=== PATIENT | female | born 1955 | race Caucasian/White ===

== ENCOUNTER 2016-11-18 12:15 | Inpatient (IN) | payer OTHER ==
[2016-11-18 12:31] VITALS: BMI 35.8
--- NOTE | 2016-11-18 15:15 | HP ---
CIWA Score - CIWA Score Nausea/Vomitin (& DIARRHEA) Muscle Tremors: 4-Moderate,w/Arms Extend Anxiety: 4-Mod. Anxious/Guarded Agitation: 4-Moderately Restless Paroxysmal Sweats: 3 Orientation: 0-Oriented Tacttile Disturbances: 1-Very Mild Itch/Numbness Auditory Disturbances: 0-None Visual Disturbances: 0-None Headache: 0-None Present CIWA-Ar Total Score: 19 Admission ROS BHS - HPI Chief Complaint: WITHDRAWAL SX. Allergies/Adverse Reactions: Allergies Allergy/AdvReac Type Severity Reaction Status Date / Time No Known Drug Allergies Allergy Unknown Verified 11/18/16 14:12 peaches Allergy Rash Uncoded 11/18/16 14:12 History of Present Illness: 61 Y/O WOMAN WITH A LONG HX. OF ALCOHOLISM IS ADMITTED FOR DETOX. PT. HAS BEEN IN PREVIOUS DETOX, PT. REPORT 4 YRS DRUG FREE & SOBER. Exam Limitations: No Limitations - Ebola screening Have you traveled outside of the country in the last 21 days: No Have you had contact with anyone from an Ebola affected area: No Have you been sick,other than usual withdrawal symptoms: No Do you have a fever: No - Review of Systems Constitutional: Diaphoresis EENT: reports: No Symptoms Reported Respiratory: reports: Cough (ASTHMA), Shortness of Breath (ASTHMA), Wheezing ( ASTHMA) GI: reports: Diarrhea, Nausea : reports: Frequency Musculoskeletal: reports: Back Pain, Joint Pain Integumentary: reports: Sweating Neuro: reports: Tremors Endocrine: reports: No Symptoms Reported Hematology: reports: No Symptoms Reported Psychiatric: reports: No Sypmtoms Reported Other Systems: Reviewed and Negative Patient History - Patient Medical History Hx Anemia: No Hx Asthma: Yes Hx Chronic Obstructive Pulmonary Disease (COPD): No Hx Cancer: No Hx Cardiac Disorders: No Hx Congestive Heart Failure: No Hx Hypertension: Yes Hx Hypercholesterolemia: Yes Hx Pacemaker: No HX Cerebrovascular Accident: No Hx Seizures: No Hx Dementia: No Hx Diabetes: Yes (BGM-145) Hx Gastrointestinal Disorders: No Hx Liver Disease: No Hx Genitourinary Disorders: No Hx Sexually Transmitted Disorders: No Hx Renal Disease (ESRD): No Hx Thyroid Disease: No Hx Human Immunodeficiency Virus (HIV): No Hx Hepatitis C: No Hx Depression: Yes Hx Suicide Attempt: No Hx Bipolar Disorder: Yes (depression, gives hx of mood changes) Hx Schizophrenia: No - Patient Surgical History Past Surgical History: Yes Hx Neurologic Surgery: No Hx Cataract Extraction: No Hx Cardiac Surgery: No Hx Lung Surgery: No Hx Breast Surgery: No Hx Breast Biopsy: No Hx Abdominal Surgery: No Hx Appendectomy: No Hx Cholecystectomy: No Hx Genitourinary Surgery: No Hx Section: No Hx Orthopedic Surgery: No Hx Hysterectomy: Yes (2008) Anesthesia Reaction: No - PPD History Previous Implant?: Yes Documented Results: Positive w/o proof Implanted On Prior [facility] Admission?: No PPD to be Administered?: No - Reproductive History Patient is a Female of Child Bearing Age (11 -55 yrs old): No Last Menstrual Period: 10/18/09 Patient : No - Smoking Cessation Smoking history: Current some day smoker Have you smoked in the past 12 months: Yes Aproximately how many cigarettes per day: 5 If you are a former smoker, when did you quit?: 2 moths ago Cigars Per Day: 0 Hx Chewing Tobacco Use: No Initiated information on smoking cessation: Yes 'Breaking Loose' booklet given: 11/18/16 - Substance & Tx. History Hx Alcohol Use: Yes Hx Substance Use: Yes Substance Use Type: Alcohol, Cocaine, Marijuana Hx Substance Use Treatment: Yes (DETOX) - Substances Abused Alcohol Route: Oral Frequency: Daily Amount used: vodka(1/5)/beer(2-6pks(24oz) Age of first use: 15 Date of Last Use: 11/18/16 Marijuana/Hashish Route: Smoking Frequency: Daily Amount used: $10 Age of first use: 15 Date of Last Use: 12/18/15 Cocaine Route: Inhalation Frequency: 3-6 times per week Amount used: $10 Age of first use: 29 Date of Last Use: 12/18/15 Family Disease History - Family Disease History Family Disease History: Heart Disease: Sister (breast), CA: Mother (pelvic), Sister, Respiratory: Mother, Sister, Other: Brother ( heroin overdose) Admission Physical Exam S - Vital Signs Vital Signs: Vital Signs - 24 hr 11/18/16 12:29 Temperature 96.5 F L Pulse Rate 101 H Respiratory 20 Rate Blood Pressure 122/79 - Physical General Appearance: Yes: Alcohol on Breath, Tremorous, Irritable, Sweating, Anxious HEENTM: Yes: Within Normal Limits Respiratory: Yes: Chest Non-Tender, Lungs Clear, Normal Breath Sounds Neck: Yes: Supple Breast: Yes: Breast Exam Deferred Cardiology: Yes: Regular Rhythm, Regular Rate, S1, S2 Abdominal: Yes: Normal Bowel Sounds, Non Tender, Soft Genitourinary: Yes: Frequency Back: Yes: Within Normal Limits Musculoskeletal: Yes: Within Normal Limits Extremities: Yes: Tremors Neurological: Yes: Fully Oriented, Alert Integumentary: Yes: Diaphoresis Lymphatic: Yes: Within Normal Limits - Diagnostic (1) Asthma Current Visit: Yes Status: Active (2) DM Diabetes mellitus type 2 Current Visit: Yes Status: Active (3) Essential hypertension Current Visit: Yes Status: Active (4) Gastroesophageal reflux disease Current Visit: Yes Status: Active (5) Nicotine dependence Current Visit: No Status: Active (6) Alcohol dependence with uncomplicated withdrawal Current Visit: Yes Status: Acute (7) Cocaine dependence, uncomplicated Current Visit: Yes Status: Acute Cleared for Admission [facility] - Detox or Rehab [facility] Level of Care: Medically Managed Detox Regimen/Protocol: Librium S Breath Alcohol Content Breath Alcohol Content: 0.044 Urine Pregancy Test - Result Urine Test Results: Negative- NO Line Present Urine Drug Screen - Results Drug Screen Negative: No Urine Drug Screen Results: THC-Marijuana, JACKELINE-Cocaine
[2016-11-18] MEDS ORDERED: MAG HYDROX/AL HYDROX/SIMETH 30 ML UNIT-DOSE CUP PO PRN (15:28)
[2016-11-18] MEDS ORDERED: ACETAMINOPHEN 325 MG TABLET (FP) PO PRN (15:28)
[2016-11-18] MEDS ORDERED: MENTHOL/PHENOL 1 EACH UD MM PRN (15:28)
[2016-11-18] MEDS ORDERED: LOPERAMIDE HCL 2 MG CAPSULE PO PRN (15:28)
[2016-11-18] MEDS ORDERED: chlordiazePOXIDE HCL 25 MG CAPSULE PO ONE (15:28)
[2016-11-18] MEDS ORDERED: MAGNESIUM CITRATE 300 ML BOTTLE PO PRN (15:28)
[2016-11-18] MEDS ORDERED: guaiFENesin/D-METHORPHAN HB 10 ML UNIT-DOSE CUPS PO PRN (15:28)
[2016-11-18] MEDS ORDERED: P-EPHED 60MG/TRIPROLIDI 2.5MG TABLET PO PRN (15:28)
[2016-11-18] MEDS ORDERED: ALBUTEROL SO4 2.5/IPRATROPIUM 0.5 INH SOL 3 ML VIAL.NEB. NEB PRN (15:45)
[2016-11-18] MEDS: INSULIN SLIDING SCALE (NOVOLOG) 1 VIAL SQ SCH (16:58)
[2016-11-18] MEDS: chlordiazePOXIDE HCL 25 MG CAPSULE PO SCH ×2 (17:05→22:20)
[2016-11-18] MEDS: NICOTINE 14 MG/24 HOURS TOPICAL PATCH TD SCH (17:05)
[2016-11-18] MEDS: NICOTINE POLACRILEX 2 MG GUM BC PRN (17:06)
[2016-11-18] MEDS: IBUPROFEN 400 MG TABLET (FP) PO PRN (17:10)
[2016-11-18] MEDS: ALBUTEROL SO4 2.5/IPRATROPIUM 0.5 INH SOL 3 ML VIAL.NEB. NEB SCH ×2 (18:31→23:47)
[2016-11-18] MEDS ORDERED: PATIENT'S OWN MEDICATION (NON-FORMULARY) (Omega-3 Fatty Acids [Omega-3] 1,000 MG) PO SCH (22:00)
[2016-11-18] MEDS ORDERED: PRAMIPEXOLE DIHYDROCHLORIDE 0.5 MG TABLET PO SCH (22:00)
[2016-11-18] MEDS ORDERED: PRAMIPEXOLE DIHYDROCHLORIDE PO SCH (22:00)
[2016-11-18] MEDS: ATORVASTATIN CA 20 MG TABLET (FP) PO SCH (22:20)
[2016-11-18] MEDS: OMEGA-3 ACID ETHYL ESTERS (FATTY-ACIDS) 1 GM CAPSULE (FP) PO SCH (22:21)
[2016-11-18] MEDS: THIAMINE HCL 100 MG TABLET (FP) PO SCH (22:21)
[2016-11-18] MEDS: MONTELUKAST NA 10 MG TABLET PO SCH (22:21)
[2016-11-18] MEDS: diphenhydrAMINE HCL 50 MG CAPSULE PO PRN (22:33)
[2016-11-18 23:05] LABS: URINE APPEARANCE CLEAR; URINE BILIRUBIN NEGATIVE (NEGATIVE); URINE COLOR LTYELLOW; URINE GLUCOSE (UA) NEGATIVE (NEGATIVE); URINE KETONE NEGATIVE (NEGATIVE); URINE LEUK ESTERASE NEGATIVE (NEGATIVE); URINE NITRITE NEGATIVE (NEGATIVE); URINE PROTEIN NEGATIVE (NEGATIVE); URINE UROBILINOGEN NEGATIVE E.U./dl (0.2-1.0)
[2016-11-18 23:11] LABS: URINE BLOOD 1+ (NEGATIVE)
[2016-11-19] MEDS: chlordiazePOXIDE HCL 25 MG CAPSULE PO SCH ×4 (05:48→22:17)
[2016-11-19] MEDS: metFORMIN HCL 500 MG TABLET (FP) PO SCH (06:58)
[2016-11-19] MEDS: ALBUTEROL SO4 2.5/IPRATROPIUM 0.5 INH SOL 3 ML VIAL.NEB. NEB SCH ×4 (06:59→23:36)
[2016-11-19] MEDS: INSULIN SLIDING SCALE (NOVOLOG) 1 VIAL SQ SCH ×2 (06:59→17:25)
[2016-11-19] MEDS: IBUPROFEN 400 MG TABLET (FP) PO PRN ×2 (08:55→18:35)
[2016-11-19] MEDS ORDERED: PATIENT'S OWN MEDICATION (NON-FORMULARY) (Omeprazole 40 MG) PO SCH (10:00)
[2016-11-19 10:32] LABS: MCH 35.1 pg (25.7-33.7); MCHC 34.1 g/dl (32.0-36.0); MEAN CELL VOLUME 102.8 fl (80-96); MEAN PLT VOLUME 8.2 fl (7.5-11.1); PLATELET COUNT 173 K/MM3 (134-434); RDW 12.7 % (11.6-15.6); WHITE BLOOD COUNT 8.5 K/mm3 (4.0-10.0)
[2016-11-19] MEDS: OMEGA-3 ACID ETHYL ESTERS (FATTY-ACIDS) 1 GM CAPSULE (FP) PO SCH ×2 (10:40→22:16)
[2016-11-19] MEDS: HYDROCHLOROTHIAZIDE 12.5 MG CAPSULE (FP) PO SCH (10:42)
[2016-11-19] MEDS: PRENATAL VITAMINS W/ FOLIC ACID TABLET (FP) PO SCH (10:42)
[2016-11-19] MEDS: amLODIPine BESYLATE 10 MG TABLET (FP) PO SCH (10:42)
[2016-11-19] MEDS: ASPIRIN 81 MG CHEWABLE TABLETS PO SCH (10:42)
[2016-11-19] MEDS: PANTOPRAZOLE 40 MG TABLET (FP) PO SCH (10:43)
--- NOTE | 2016-11-19 10:57 | CONSULT ---
[facility] Psychiatric Consult - Data Date of interview: 11/19/16 Admission source: [facility] Identifying data: Readmission to [facility] for this 61 y/o AA female seeking detox treatment on for alcohol,cocaine and marijuana dependence.Patient is ,a mother of six,domiciled unemployed and supported on SSI benefits. Substance Abuse History: - Smoking Cessation. Smoking history: Current some day smoker. Have you smoked in the past 12 months: Yes. Aproximately how many cigarettes per day: 5. If you are a former smoker, when did you quit?: 2 moths ago. Cigars Per Day: 0. Hx Chewing Tobacco Use: No. Initiated information on smoking cessation: Yes. 'Breaking Loose' booklet given: 11/18/16. - Substance & Tx. History. Hx Alcohol Use: Yes. Hx Substance Use: Yes. Substance Use Type : Alcohol, Cocaine, Marijuana. Hx Substance Use Treatment: Yes (DETOX). - Substances Abused. Alcohol. Route: Oral. Frequency: Daily. Amount used: vodka(1/5)/beer(2-6pks(24oz). Age of first use: 15. Date of Last Use: . Marijuana/Hashish. Route: Smoking. Frequency: Daily. Amount used: $ 10. Age of first use: 15. Date of Last Use: 12/18/15. Cocaine. Route: Inhalation. Frequency: 3-6 times per week. Amount used: $10. Age of first use : 29. Date of Last Use: 12/18/15. Confirmed by patient. Medical History: Significant for hypertension,GERD,obesity diabetes mellitus and dyslipidemia. Psychiatric History: First contact with Psychiatry :seven years ago in the setting of an outpatient drug rehabilitatiion program.Issues addressed : depression,anxiety and sleep disorder.Diagnosed with MDD,Bipolar Disorder.Ms Ayoub explains that she used to be on buspar,seroquel and valproate.No reported history of psychiatric hospitalizations.Currently she is followed at the [facility] program in the [place].Patient is on trazodone 200 mg at bedtime ( prescribed by her psychiatrist but she is requesting 300 mg).No history of suicide attempts. Physical/Sexual Abuse/Trauma History: Patient denies. Mental Status Exam - Mental Status Exam Alert and Oriented to: Time, Place, Person Cognitive Function: Good Patient Appearance: Well Groomed Mood: Hopeful, Euthymic Affect: Appropriate, Normal Range Patient Behavior: Fatigued, Appropriate, Cooperative Speech Pattern: Clear, Appropriate Voice Loudness: Normal Thought Process: Goal Oriented Thought Disorder: Not Present Hallucinations: Denies Suicidal Ideation: Denies Homicidal Ideation: Denies Insight/Judgement: Poor Sleep: Poorly, Difficulty falling asleep Appetite: Good Muscle strength/Tone: Normal Gait/Station: Normal Psychiatric Findings - Problem List (Hubert 1, 2,3) (1) Alcohol dependence with uncomplicated withdrawal Current Visit: Yes Status: Acute (2) Cocaine dependence, uncomplicated Current Visit: Yes Status: Acute (3) Nicotine dependence Current Visit: Yes Status: Active (4) Cannabis dependence Current Visit: Yes Status: Acute (5) Drug-induced mood disorder Current Visit: Yes Status: Acute (6) Bipolar II disorder Current Visit: No Status: Chronic Comment: By history. (7) Obesity Current Visit: Yes Status: Chronic (8) Essential hypertension Current Visit: Yes Status: Chronic (9) Asthma Current Visit: Yes Status: Chronic (10) DM Diabetes mellitus type 2 Current Visit: Yes Status: Chronic (11) Gastroesophageal reflux disease Current Visit: Yes Status: Chronic (12) Insomnia Current Visit: Yes Status: Acute - Initial Treatment Plan Initial Treatment Plan: Psychoeducation.Detoxification.Trazodone 200 mg po hs.Side effects/benefits discussed ith patient.She agrees with this careplan.Observation.
[2016-11-19] MEDS: NICOTINE 14 MG/24 HOURS TOPICAL PATCH TD SCH (11:05)
[2016-11-19 11:18] LABS: ALBUMIN 3.7 g/dl (3.4-5.0); ALK PHOS 105 U/L (45-117); ANION GAP 9 (8-16); BILIRUBIN,TOTAL 0.9 mg/dL (0.2-1.0); CALCIUM 9.7 mg/dL (8.5-10.1); CO2 25 mmol/L (21-32); CREATININE 0.8 mg/dL (0.55-1.02); GLUCOSE,RANDOM 129 mg/dL (74-106); SGOT/AST 73 U/L (15-37); SGPT/ALT 74 U/L (12-78); TOT PROT 6.9 g/dl (6.4-8.2)
--- NOTE | 2016-11-19 11:23 | PN ---
S CIWA - CIWA Score Nausea/Vomitin Muscle Tremors: 3 Anxiety: 2 Agitation: 2 Paroxysmal Sweats: 1-Minimal Palms Moist Orientation: 0-Oriented Tacttile Disturbances: 1-Very Mild Itch/Numbness Auditory Disturbances: 1-Very Mild Visual Disturbances: 1-Very Mild Sensitivity Headache: 2-Mild CIWA-Ar Total Score: 16 BHS Progress Note (SOAP) Subjective: ALERT,IRRITABLE,ANXIOUS,INTERRUPTED SLEEP,TREMOR Objective: 11/19/16 11:21 Vital Signs Temperature 98.1 F 11/19/16 10:23 Pulse Rate 96 H 11/19/16 10:23 Respiratory Rate 18 11/19/16 10:23 Blood Pressure 123/87 11/19/16 10:23 O2 Sat by Pulse Oximetry (%) EKG SINUS TACHYCARDIA 102/MIN NO CHEST PAIN,NO SOB,NO DIZZINESS Laboratory Last Values WBC 8.5 K/mm3 (4.0-10.0) 11/19/16 07:15 RBC 4.22 M/mm3 (3.60-5.2) 11/19/16 07:15 Hgb 14.8 GM/dL (10.7-15.3) 11/19/16 07:15 Hct 43.4 % (32.4-45.2) 11/19/16 07:15 MCV 102.8 fl (80-96) H 11/19/16 07:15 MCHC 34.1 g/dl (32.0-36.0) 11/19/16 07:15 RDW 12.7 % (11.6-15.6) 11/19/16 07:15 Plt Count 173 K/MM3 (134-434) 11/19/16 07:15 MPV 8.2 fl (7.5-11.1) 11/19/16 07:15 Sodium 140 mmol/L (136-145) 11/19/16 07:15 Potassium 3.6 mmol/L (3.5-5.1) 11/19/16 07:15 Chloride 106 mmol/L (98-107) 11/19/16 07:15 Carbon Dioxide 25 mmol/L (21-32) 11/19/16 07:15 Anion Gap 9 (8-16) 11/19/16 07:15 BUN 10 mg/dL (7-18) D 11/19/16 07:15 Creatinine 0.8 mg/dL (0.55-1.02) D 11/19/16 07:15 Creat Clearance w eGFR > 60 (>60) 11/19/16 07:15 POC Glucometer 118 UNITS (()) 11/19/16 05:47 Random Glucose 129 mg/dL (74-106) H D 11/19/16 07:15 Calcium 9.7 mg/dL (8.5-10.1) 11/19/16 07:15 Total Bilirubin 0.9 mg/dL (0.2-1.0) D 11/19/16 07:15 AST 73 U/L (15-37) H D 11/19/16 07:15 ALT 74 U/L (12-78) 11/19/16 07:15 Alkaline Phosphatase 105 U/L (45-117) 11/19/16 07:15 Total Protein 6.9 g/dl (6.4-8.2) 11/19/16 07:15 Albumin 3.7 g/dl (3.4-5.0) 11/19/16 07:15 Urine Color Ltyellow 11/18/16 22:45 Urine Appearance Clear 11/18/16 22:45 Urine pH 6.0 (5.0-8.0) 11/18/16 22:45 Ur Specific [place] 1.008 (1.001-1.035) 11/18/16 22:45 Urine Protein Negative (NEGATIVE) 11/18/16 22:45 Urine Glucose (UA) Negative (NEGATIVE) 11/18/16 22:45 Urine Ketones Negative (NEGATIVE) 11/18/16 22:45 Urine Blood 1+ (NEGATIVE) H 11/18/16 22:45 Urine Nitrite Negative (NEGATIVE) 11/18/16 22:45 Urine Bilirubin Negative (NEGATIVE) 11/18/16 22:45 Urine Urobilinogen Negative E.U./dl (0.2-1.0) 11/18/16 22:45 Ur Leukocyte Esterase Negative (NEGATIVE) 11/18/16 22:45 Assessment: 11/19/16 11:23 WITHDRAWAL SYMPTOM Plan: CONTINUE DETOX,BGM MONITORING
[2016-11-19] MEDS: NICOTINE POLACRILEX 2 MG GUM BC PRN (12:11)
[2016-11-19] MEDS: hydrOXYzine PAMOATE 50 MG CAPSULE (FP) PO PRN (12:43)
[2016-11-19] MEDS: ALBUTEROL SO4 6.7 GM HFA INHALER IH PRN (22:15)
[2016-11-19] MEDS: PRAMIPEXOLE DIHYDROCHLORIDE 0.5 MG TABLET PO SCH (22:16)
[2016-11-19] MEDS: THIAMINE HCL 100 MG TABLET (FP) PO SCH (22:16)
[2016-11-19] MEDS: MONTELUKAST NA 10 MG TABLET PO SCH (22:16)
[2016-11-19] MEDS: diphenhydrAMINE HCL 50 MG CAPSULE PO PRN (22:17)
[2016-11-19] MEDS: traZODone HCL 100 MG TABLET (FP) PO SCH (22:17)
[2016-11-19] MEDS: ATORVASTATIN CA 20 MG TABLET (FP) PO SCH (22:17)
[2016-11-20] MEDS: chlordiazePOXIDE HCL 25 MG CAPSULE PO SCH ×2 (05:24→10:17)
[2016-11-20] MEDS: ALBUTEROL SO4 2.5/IPRATROPIUM 0.5 INH SOL 3 ML VIAL.NEB. NEB SCH ×4 (05:54→23:48)
[2016-11-20] MEDS: metFORMIN HCL 500 MG TABLET (FP) PO SCH (07:07)
[2016-11-20] MEDS: INSULIN SLIDING SCALE (NOVOLOG) 1 VIAL SQ SCH ×2 (07:07→17:11)
[2016-11-20] MEDS: hydrOXYzine PAMOATE 50 MG CAPSULE (FP) PO PRN ×3 (10:17→20:19)
[2016-11-20] MEDS: PANTOPRAZOLE 40 MG TABLET (FP) PO SCH (10:17)
[2016-11-20] MEDS: ASPIRIN 81 MG CHEWABLE TABLETS PO SCH (10:17)
[2016-11-20] MEDS: amLODIPine BESYLATE 10 MG TABLET (FP) PO SCH (10:17)
[2016-11-20] MEDS: PRENATAL VITAMINS W/ FOLIC ACID TABLET (FP) PO SCH (10:18)
[2016-11-20] MEDS: NICOTINE 14 MG/24 HOURS TOPICAL PATCH TD SCH (10:18)
[2016-11-20] MEDS: HYDROCHLOROTHIAZIDE 12.5 MG CAPSULE (FP) PO SCH (10:19)
[2016-11-20] MEDS: OMEGA-3 ACID ETHYL ESTERS (FATTY-ACIDS) 1 GM CAPSULE (FP) PO SCH ×2 (10:19→22:13)
--- NOTE | 2016-11-20 10:32 | PN ---
S CIWA - CIWA Score Nausea/Vomitin-No Nausea/No Vomiting Muscle Tremors: 4-Moderate,w/Arms Extend Anxiety: 4-Mod. Anxious/Guarded Agitation: 4-Moderately Restless Paroxysmal Sweats: 3 Orientation: 0-Oriented Tacttile Disturbances: 0-None Auditory Disturbances: 0-None Visual Disturbances: 0-None Headache: 1-Very Mild CIWA-Ar Total Score: 16 BHS Progress Note (SOAP) Subjective: agitation anxiety sweats restless legs chills body aches Objective: 11/20/16 10:30 Vital Signs Temperature 97.9 F 11/20/16 06:53 Pulse Rate 81 11/20/16 06:53 Respiratory Rate 18 11/20/16 06:53 Blood Pressure 136/80 11/20/16 06:53 O2 Sat by Pulse Oximetry (%) Laboratory Tests 11/18/16 11/18/16 11/19/16 14:49 22:45 05:47 WBC RBC Hgb Hct MCV MCHC RDW Plt Count MPV Sodium Potassium Chloride Carbon Dioxide Anion Gap BUN Creatinine Creat Clearance w eGFR POC Glucometer 145 118 Random Glucose Calcium Total Bilirubin AST ALT Alkaline Phosphatase Total Protein Albumin Urine Color Ltyellow Urine Appearance Clear Urine pH 6.0 Ur Specific [place] 1.008 Urine Protein Negative Urine Glucose (UA) Negative Urine Ketones Negative Urine Blood 1+ H Urine Nitrite Negative Urine Bilirubin Negative Urine Urobilinogen Negative Ur Leukocyte Esterase Negative RPR Titer 11/19/16 11/19/16 11/19/16 07:15 07:15 07:15 WBC 8.5 RBC 4.22 Hgb 14.8 Hct 43.4 MCV 102.8 H MCHC 34.1 RDW 12.7 Plt Count 173 MPV 8.2 Sodium 140 Potassium 3.6 Chloride 106 Carbon Dioxide 25 Anion Gap 9 BUN 10 D Creatinine 0.8 D Creat Clearance w eGFR > 60 POC Glucometer Random Glucose 129 H D Calcium 9.7 Total Bilirubin 0.9 D AST 73 H D ALT 74 Alkaline Phosphatase 105 Total Protein 6.9 Albumin 3.7 Urine Color Urine Appearance Urine pH Ur Specific [place] Urine Protein Urine Glucose (UA) Urine Ketones Urine Blood Urine Nitrite Urine Bilirubin Urine Urobilinogen Ur Leukocyte Esterase RPR Titer Nonreactive 11/19/16 11/20/16 16:37 05:23 WBC RBC Hgb Hct MCV MCHC RDW Plt Count MPV Sodium Potassium Chloride Carbon Dioxide Anion Gap BUN Creatinine Creat Clearance w eGFR POC Glucometer 136 144 Random Glucose Calcium Total Bilirubin AST ALT Alkaline Phosphatase Total Protein Albumin Urine Color Urine Appearance Urine pH Ur Specific [place] Urine Protein Urine Glucose (UA) Urine Ketones Urine Blood Urine Nitrite Urine Bilirubin Urine Urobilinogen Ur Leukocyte Esterase RPR Titer awake/alert ambulating no acute distress Assessment: 11/20/16 10:31 withdrawal sx Plan: continue detox increase fluids flexiril 10mg prn analgesic balm motrin 600mg prn
[2016-11-20] MEDS: IBUPROFEN 600 MG TABLET (FP) PO PRN ×2 (10:55→19:23)
[2016-11-20] MEDS: CYCLOBENZAPRINE HCL 10 MG TABLET (FP) PO PRN ×2 (10:55→19:23)
[2016-11-20] MEDS: LIDOCAINE 5% TOPICAL PATCH TP SCH (11:35)
[2016-11-20] MEDS: METHYL SALICYLATE/MENTHOL OINT 30 GM TUBE TP SCH ×2 (11:35→22:13)
[2016-11-20] MEDS: chlordiazePOXIDE HCL 25 MG CAPSULE PO PRN (13:34)
[2016-11-20] MEDS: chlordiazePOXIDE 5 MG CAPSULE PO SCH ×2 (17:14→22:12)
[2016-11-20] MEDS ORDERED: COLLOIDAL OATMEAL 1 BAR EACH TP PRN (20:54)
[2016-11-20] MEDS ORDERED: diphenhydrAMINE HCL 50 MG CAPSULE PO ONE (20:55)
[2016-11-20] MEDS: traZODone HCL 100 MG TABLET (FP) PO SCH (22:11)
[2016-11-20] MEDS: THIAMINE HCL 100 MG TABLET (FP) PO SCH (22:11)
[2016-11-20] MEDS: MONTELUKAST NA 10 MG TABLET PO SCH (22:12)
[2016-11-20] MEDS: ATORVASTATIN CA 20 MG TABLET (FP) PO SCH (22:12)
[2016-11-20] MEDS: PRAMIPEXOLE DIHYDROCHLORIDE 0.5 MG TABLET PO SCH (22:14)
[2016-11-20] MEDS: ALBUTEROL SO4 6.7 GM HFA INHALER IH PRN (22:17)
[2016-11-20] MEDS: HYDROCORTISONE 1% TOPICAL CREAM 30 GM TUBE TP SCH (22:55)
[2016-11-21] MEDS: chlordiazePOXIDE 5 MG CAPSULE PO SCH ×2 (05:25→10:33)
[2016-11-21] MEDS: ALBUTEROL SO4 2.5/IPRATROPIUM 0.5 INH SOL 3 ML VIAL.NEB. NEB SCH ×3 (05:26→22:19)
[2016-11-21] MEDS: metFORMIN HCL 500 MG TABLET (FP) PO SCH (06:38)
[2016-11-21] MEDS: HYDROCORTISONE 1% TOPICAL CREAM 30 GM TUBE TP SCH (06:38)
[2016-11-21] MEDS: IBUPROFEN 600 MG TABLET (FP) PO PRN ×2 (07:15→14:16)
[2016-11-21] MEDS: CYCLOBENZAPRINE HCL 10 MG TABLET (FP) PO PRN (07:15)
[2016-11-21] MEDS: INSULIN SLIDING SCALE (NOVOLOG) 1 VIAL SQ SCH ×2 (07:40→17:24)
[2016-11-21] MEDS ORDERED: diphenhydrAMINE HCL 25 MG CAPSULE (FP) PO ONE (08:40)
[2016-11-21] MEDS: PRENATAL VITAMINS W/ FOLIC ACID TABLET (FP) PO SCH (10:33)
[2016-11-21] MEDS: amLODIPine BESYLATE 10 MG TABLET (FP) PO SCH (10:33)
[2016-11-21] MEDS: PANTOPRAZOLE 40 MG TABLET (FP) PO SCH (10:33)
[2016-11-21] MEDS: ASPIRIN 81 MG CHEWABLE TABLETS PO SCH (10:33)
[2016-11-21] MEDS: HYDROCHLOROTHIAZIDE 12.5 MG CAPSULE (FP) PO SCH (10:33)
[2016-11-21] MEDS: METHYL SALICYLATE/MENTHOL OINT 30 GM TUBE TP SCH (10:34)
[2016-11-21] MEDS: OMEGA-3 ACID ETHYL ESTERS (FATTY-ACIDS) 1 GM CAPSULE (FP) PO SCH ×2 (10:34→22:19)
[2016-11-21] MEDS: FLUOCINONIDE 0.05% TOP OINT (15 GM TUBE) TP SCH ×2 (10:35→22:18)
[2016-11-21] MEDS: LIDOCAINE 5% TOPICAL PATCH TP SCH (10:36)
[2016-11-21] MEDS: NICOTINE 14 MG/24 HOURS TOPICAL PATCH TD SCH (10:36)
--- NOTE | 2016-11-21 10:50 | PN ---
BHS Progress Note (SOAP) Subjective: interrupted sleep,sweats, shakes , constipated , itchy rash Objective: 11/21/16 10:42 Vital Signs Temperature 98.2 F 11/21/16 06:36 Pulse Rate 96 H 11/21/16 06:36 Respiratory Rate 20 11/21/16 06:36 Blood Pressure 132/94 11/21/16 06:36 O2 Sat by Pulse Oximetry (%) Laboratory Tests 11/18/16 11/18/16 11/19/16 14:49 22:45 05:47 WBC RBC Hgb Hct MCV MCHC RDW Plt Count MPV Sodium Potassium Chloride Carbon Dioxide Anion Gap BUN Creatinine Creat Clearance w eGFR POC Glucometer 145 118 Random Glucose Calcium Total Bilirubin AST ALT Alkaline Phosphatase Total Protein Albumin Urine Color Ltyellow Urine Appearance Clear Urine pH 6.0 Ur Specific [place] 1.008 Urine Protein Negative Urine Glucose (UA) Negative Urine Ketones Negative Urine Blood 1+ H Urine Nitrite Negative Urine Bilirubin Negative Urine Urobilinogen Negative Ur Leukocyte Esterase Negative RPR Titer 11/19/16 11/19/16 11/19/16 07:15 07:15 07:15 WBC 8.5 RBC 4.22 Hgb 14.8 Hct 43.4 MCV 102.8 H MCHC 34.1 RDW 12.7 Plt Count 173 MPV 8.2 Sodium 140 Potassium 3.6 Chloride 106 Carbon Dioxide 25 Anion Gap 9 BUN 10 D Creatinine 0.8 D Creat Clearance w eGFR > 60 POC Glucometer Random Glucose 129 H D Calcium 9.7 Total Bilirubin 0.9 D AST 73 H D ALT 74 Alkaline Phosphatase 105 Total Protein 6.9 Albumin 3.7 Urine Color Urine Appearance Urine pH Ur Specific [place] Urine Protein Urine Glucose (UA) Urine Ketones Urine Blood Urine Nitrite Urine Bilirubin Urine Urobilinogen Ur Leukocyte Esterase RPR Titer Nonreactive 11/19/16 11/20/16 11/20/16 16:37 05:23 16:25 WBC RBC Hgb Hct MCV MCHC RDW Plt Count MPV Sodium Potassium Chloride Carbon Dioxide Anion Gap BUN Creatinine Creat Clearance w eGFR POC Glucometer 136 144 152 Random Glucose Calcium Total Bilirubin AST ALT Alkaline Phosphatase Total Protein Albumin Urine Color Urine Appearance Urine pH Ur Specific [place] Urine Protein Urine Glucose (UA) Urine Ketones Urine Blood Urine Nitrite Urine Bilirubin Urine Urobilinogen Ur Leukocyte Esterase RPR Titer 11/21/16 06:07 WBC RBC Hgb Hct MCV MCHC RDW Plt Count MPV Sodium Potassium Chloride Carbon Dioxide Anion Gap BUN Creatinine Creat Clearance w eGFR POC Glucometer 131 Random Glucose Calcium Total Bilirubin AST ALT Alkaline Phosphatase Total Protein Albumin Urine Color Urine Appearance Urine pH Ur Specific [place] Urine Protein Urine Glucose (UA) Urine Ketones Urine Blood Urine Nitrite Urine Bilirubin Urine Urobilinogen Ur Leukocyte Esterase RPR Titer pt aox3 in bed skin /erythematous and purplish macules scattered arms , chest , legs Assessment: 11/21/16 10:44 withdrawl sx's rash / purpura 11/21/16 11:02 Plan: cont. detox increase fluids cbc/esr hydroxyzine 50mg q6h prednisone 40mg /d
[2016-11-21] MEDS: hydrOXYzine PAMOATE 50 MG CAPSULE (FP) PO SCH ×3 (11:14→22:19)
[2016-11-21] MEDS: MAGNESIUM HYDROX 2400MG/30ML ORAL SUSPENSION 30 ML CUP PO PRN (11:15)
[2016-11-21] MEDS: predniSONE 20 MG TABLET (UD) PO SCH (11:15)
[2016-11-21 13:19] LABS: BASOPHIL 0.4 % (0-2.0); EOSINOPHIL 3.7 % (0-4.5); MCH 35.3 pg (25.7-33.7); MCHC 35.1 g/dl (32.0-36.0); MEAN CELL VOLUME 100.5 fl (80-96); MEAN PLT VOLUME 7.8 fl (7.5-11.1); PLATELET COUNT 191 K/MM3 (134-434); RDW 12.5 % (11.6-15.6); WHITE BLOOD COUNT 8.5 K/mm3 (4.0-10.0)
[2016-11-21] MEDS: chlordiazePOXIDE HCL 25 MG CAPSULE PO PRN (14:16)
[2016-11-21 14:27] LABS: ERYTHROCYTE SEDIMENTATION RATE 25 mm/hr (0-30)
[2016-11-21] MEDS ORDERED: INSULIN (NOVOLOG) ASPART 100 UNITS/ML 10ML VIAL ONE (17:06)
[2016-11-21] MEDS: chlordiazePOXIDE HCL 10 MG CAPSULE PO SCH ×2 (17:23→22:18)
[2016-11-21] MEDS: traZODone HCL 100 MG TABLET (FP) PO SCH (22:18)
[2016-11-21] MEDS: THIAMINE HCL 100 MG TABLET (FP) PO SCH (22:18)
[2016-11-21] MEDS: ATORVASTATIN CA 20 MG TABLET (FP) PO SCH (22:18)
[2016-11-21] MEDS: MONTELUKAST NA 10 MG TABLET PO SCH (22:18)
[2016-11-21] MEDS: PRAMIPEXOLE DIHYDROCHLORIDE 0.5 MG TABLET PO SCH (22:19)
[2016-11-22] MEDS ORDERED: diphenhydrAMINE HCL 25 MG CAPSULE (FP) PO ONE (00:54)
[2016-11-22] MEDS: hydrOXYzine PAMOATE 50 MG CAPSULE (FP) PO SCH ×2 (05:25→10:32)
[2016-11-22] MEDS: ALBUTEROL SO4 2.5/IPRATROPIUM 0.5 INH SOL 3 ML VIAL.NEB. NEB SCH ×2 (05:25→13:04)
[2016-11-22] MEDS: chlordiazePOXIDE HCL 10 MG CAPSULE PO SCH ×2 (05:25→10:29)
[2016-11-22] MEDS: metFORMIN HCL 500 MG TABLET (FP) PO SCH (07:00)
[2016-11-22] MEDS: IBUPROFEN 600 MG TABLET (FP) PO PRN (07:06)
[2016-11-22] MEDS ORDERED: INSULIN (NOVOLOG) ASPART 100 UNITS/ML 10ML VIAL ONE (07:06)
[2016-11-22 07:08] VITALS: PULSE 93
[2016-11-22] MEDS: INSULIN SLIDING SCALE (NOVOLOG) 1 VIAL SQ SCH (07:10)
--- NOTE | 2016-11-22 08:51 | PN ---
Psychiatric Progress Note Vital Signs: Vital Signs Period Temp Pulse Resp BP Sys/Galeas Pulse Ox Last 24 Hr 97.7 F-99.1 F 83-99 18-20 133-146/78-88 Date of Session: 11/22/16 Chief Complaint:: Insomnia HPI: Patient reportsd taking prior to admission Trazodone 300mg po qhs Current Medications: Active Medications Generic Name Dose Route Start Last Admin Trade Name Freq PRN Reason Stop Dose Admin Acetaminophen 650 mg 11/18/16 15:28 Tylenol - PO Q4H PRN FEVER OR PAIN Al Hydroxide/Mg Hydroxide 30 ml 11/18/16 15:28 Mylanta Oral Suspension - PO Q6H PRN DYSPEPSIA Albuterol Sulfate 2 puff 11/18/16 15:31 11/20/16 22:17 Ventolin Hfa Inhaler - IH 2 puff Q4H PRN Administration ASTHMA Albuterol/Ipratropium 1 amp 11/18/16 18:00 11/22/16 05:25 Duoneb - NEB 1 amp QIDR MARCELINO Administration Albuterol/Ipratropium 1 amp 11/18/16 15:45 Duoneb - NEB Q4H PRN SHORTNESS OF BREATH Amlodipine Besylate 10 mg 11/19/16 10:00 11/21/16 10:33 Norvasc - PO 10 mg DAILY MARCELINO Administration Aspirin 81 mg 11/19/16 10:00 11/21/16 10:33 Asa - PO 81 mg DAILY MARCELINO Administration Atorvastatin Calcium 20 mg 11/18/16 22:00 11/21/16 22:18 Lipitor - PO 20 mg HS MARCELINO Administration Chlordiazepoxide HCl 10 mg 11/21/16 17:00 11/22/16 05:25 Librium - PO 11/22/16 11:01 10 mg [id number] MARCELINO Administration Colloidal Oatmeal 1 applic 11/20/16 20:54 11/21/16 11:59 Aveeno Soap - TP 1 applic DAILY PRN Administration HYGEINE Eucalyptus/Menthol/Phenol/Sorbitol 1 each 11/18/16 15:28 Cepastat Lozenge - MM Q4H PRN SORE THROAT Fluocinonide 1 applic 11/21/16 10:00 11/21/16 22:18 Lidex 0.05% Ointment - TP Not Given BID MARCELINO Guaifenesin 10 ml 11/18/16 15:28 11/20/16 13:34 Robitussin Dm - PO 10 ml Q6H PRN Administration COUGH Hydrochlorothiazide 12.5 mg 11/19/16 10:00 11/21/16 10:33 Hctz - PO 12.5 mg DAILY MARCELINO Administration Hydroxyzine Pamoate 50 mg 11/21/16 11:00 11/22/16 05:25 Vistaril - PO 50 mg Q6H MARCELINO Administration Ibuprofen 600 mg 11/20/16 09:52 11/22/16 07:06 Motrin - PO 600 mg Q6H PRN Administration SEVERE PAIN Insulin Aspart 1 vial 11/18/16 16:30 11/22/16 07:10 Novolog Vial Sliding Scale - SQ 4 unit BIDAC MARCELINO Administration Protocol Lidocaine 1 patch 11/20/16 10:45 11/21/16 10:36 Lidoderm Patch - TP 1 patch DAILY MARCELINO Administration Loperamide HCl 4 mg 11/18/16 15:28 Imodium - PO Q6H PRN DIARRHEA Magnesium Citrate 300 ml 11/18/16 15:28 Citroma - PO Q48H PRN CONSTIPATION Magnesium Hydroxide 30 ml 11/18/16 15:28 11/21/16 11:15 Milk Of Magnesia - PO 30 ml DAILY PRN Administration CONSTIPATION Metformin HCl 500 mg 11/19/16 07:00 11/22/16 07:00 Glucophage - PO 500 mg ACBK MARCELINO Administration Montelukast Sodium 10 mg 11/18/16 22:00 11/21/16 22:18 Singulair - PO 10 mg HS MARCELINO Administration Nicotine 14 mg 11/18/16 15:30 11/21/16 10:36 Nicoderm Patch - TD Not Given DAILY MARCELINO Nicotine Polacrilex 2 mg 11/18/16 15:28 11/19/16 12:11 Nicorette Gum - BC 2 mg Q2H PRN Administration NICOTINE REPLACEMENT RX [id number] Ethyl Esters 1 gm 11/18/16 22:00 11/21/16 22:19 Lovaza - PO 1 gm BID MARCELINO Administration Pantoprazole Sodium 40 mg 11/19/16 10:00 11/21/16 10:33 Protonix - PO 40 mg DAILY MARCELINO Administration Pramipexole Dihydrochloride 0.5 mg 11/19/16 10:55 11/21/16 22:19 Mirapex - PO 0.5 mg HS MARCELINO Administration Prednisone 40 mg 11/21/16 11:10 11/21/16 11:15 Deltasone - PO 40 mg DAILY MARCELINO Administration Multivit/Folic Acid/Iron 1 tab 11/19/16 10:00 11/21/16 10:33 Vitamins (Sjr) - PO 1 tab DAILY MARCELINO Administration Pseudoephedrine/Triprolidine 1 combo 11/18/16 15:28 Actifed - PO TID PRN NASAL CONGESTION Thiamine HCl 100 mg 11/18/16 22:00 11/21/16 22:18 Vitamin B1 - PO 100 mg HS MARCELINO Administration Trazodone HCl 300 mg 11/22/16 08:46 Desyrel - PO HS MARCELINO Medication(s) Change(s): Trazodone 300mg po qhs Mental Status Exam - Mental Status Exam Alert and Oriented to: Person Cognitive Function: Fair Patient Appearance: Unkempt Mood: Apprehensive Affect: Appropriate Patient Behavior: Cooperative Speech Pattern: Appropriate Voice Loudness: Normal Thought Process: Goal Oriented Thought Disorder: Being Controlled Hallucinations: Denies Suicidal Ideation: Denies Homicidal Ideation: Denies Insight/Judgement: Fair Sleep: Difficulty falling asleep Appetite: Weight gain Muscle strength/Tone: Normal Gait/Station: Shuffling Psychiatric Treatment Plan - Problem List (1) Nicotine dependence Current Visit: Yes (2) Alcohol dependence with uncomplicated withdrawal Current Visit: Yes (3) Cannabis dependence Current Visit: Yes (4) Cocaine dependence, uncomplicated Current Visit: Yes (5) Drug-induced mood disorder Current Visit: Yes (6) Alcohol dependence Current Visit: No (7) Opioid dependence Current Visit: No (8) Bipolar II disorder Current Visit: No Comment: By history. Initial treatment plan: Trazodone 300mg po qhs
--- NOTE | 2016-11-22 09:21 | DS ---
[facility] Detox Discharge Summary Admission Date: 11/18/16 Discharge Date: 11/22/16 - History Present History: Alcohol Dependence, Cannabis Dependence, Cocaine Dependence - Physical Exam Results Vital Signs: Vital Signs Temperature 98.6 F 11/22/16 07:07 Pulse Rate 93 H 11/22/16 07:07 Respiratory Rate 20 11/22/16 07:07 Blood Pressure 146/78 11/22/16 07:07 O2 Sat by Pulse Oximetry (%) - Treatment Hospital Course: Detox Protocol Followed, Detoxed Safely, Responded well, Discharged Condition Good, Rehab Referral Accepted - Medication Discharge Medications: Ambulatory Orders Albuterol Sulfate Inhaler - [Ventolin Hfa Inhaler -] 1 - 2 inh PO QID 11/18/16 Albuterol Sulfate Inhaler - [Ventolin Hfa Inhaler -] 1 - 2 inh PO QID 11/18/16 Amlodipine Besylate [Norvasc -] 10 mg PO DAILY 11/18/16 Aspirin [ASA -] 81 mg PO DAILY 11/18/16 Atorvastatin Ca [Lipitor] 20 mg PO HS 11/18/16 Fexofenadine HCl 180 mg PO DAILY 11/18/16 Fluticasone/Vilanterol [Breo Ellipta 200-25 Mcg INH] 1 each IH DAILY 11/18/16 Hydrochlorothiazide [Hctz -] 12.5 mg PO DAILY 11/18/16 Ibuprofen 800 mg PO TID PRN 11/18/16 Ipratropium/Albuterol Sulfate [Iprat-Albut 0.5-3(2.5) mg/3 ml] 3 ml IH QID 11/18 Lisinopril [Prinivil -] 40 mg PO DAILY 11/18/16 Metformin HCl 500 mg PO DAILY 11/18/16 Montelukast Na [Singulair -] 10 mg PO HS 11/18/16 Montelukast Na [Singulair -] 10 mg PO HS 11/18/16 Multivit-Min/Iron Fum/Folic AC [Wpxmf-Oxjxzbr-Dhwjxnam Tablet] 1 each PO DAILY 11/18/16 [place]-3 Fatty Acids [[place]-3] 1,000 mg PO BID 11/18/16 Omeprazole 40 mg PO DAILY 11/18/16 Pramipexole Di-HCl [Mirapex] 0.5 mg PO DAILY 11/18/16 Pramipexole Dihydrochloride [Mirapex -] 0.5 mg PO HS 11/18/16 Trazodone HCl 200 mg PO HS 11/18/16 Trazodone HCl 200 mg PO HS #60 tablet 11/21/16 Trazodone HCl 300 mg PO HS #30 tablet 11/22/16 - Diagnosis (1) Nicotine dependence Current Visit: Yes Status: Chronic (2) Alcohol dependence with uncomplicated withdrawal Current Visit: Yes Status: Chronic (3) Cannabis dependence Current Visit: Yes Status: Chronic (4) Cocaine dependence, uncomplicated Current Visit: Yes Status: Chronic (5) Drug-induced mood disorder Current Visit: Yes Status: Chronic (6) Insomnia Current Visit: Yes Status: Chronic (7) Asthma Current Visit: Yes Status: Chronic (8) DM Diabetes mellitus type 2 Current Visit: Yes Status: Chronic (9) Essential hypertension Current Visit: Yes Status: Chronic (10) Gastroesophageal reflux disease Current Visit: Yes Status: Chronic (11) Obesity Current Visit: Yes Status: Chronic (12) Alcohol dependence Current Visit: No Status: Active (13) Opioid dependence Current Visit: Yes Status: Chronic (14) Bipolar II disorder Current Visit: Yes Status: Chronic - AMA Did Patient Leave Against Medical Advice: No
[2016-11-22 10:12] VITALS: BP 136/76; TEMP 98.4
[2016-11-22] MEDS: amLODIPine BESYLATE 10 MG TABLET (FP) PO SCH (10:29)
[2016-11-22] MEDS: HYDROCHLOROTHIAZIDE 12.5 MG CAPSULE (FP) PO SCH (10:29)
[2016-11-22] MEDS: ASPIRIN 81 MG CHEWABLE TABLETS PO SCH (10:29)
[2016-11-22] MEDS: FLUOCINONIDE 0.05% TOP OINT (15 GM TUBE) TP SCH (10:29)
[2016-11-22] MEDS: OMEGA-3 ACID ETHYL ESTERS (FATTY-ACIDS) 1 GM CAPSULE (FP) PO SCH (10:29)
[2016-11-22] MEDS: PRENATAL VITAMINS W/ FOLIC ACID TABLET (FP) PO SCH (10:30)
[2016-11-22] MEDS: PANTOPRAZOLE 40 MG TABLET (FP) PO SCH (10:31)
[2016-11-22] MEDS: LIDOCAINE 5% TOPICAL PATCH TP SCH (10:31)
[2016-11-22] MEDS: predniSONE 20 MG TABLET (UD) PO SCH (10:32)
[2016-11-22] MEDS: NICOTINE 14 MG/24 HOURS TOPICAL PATCH TD SCH (10:32)
[2016-11-22] MEDS: MAGNESIUM HYDROX 2400MG/30ML ORAL SUSPENSION 30 ML CUP PO PRN (10:37)
[2016-11-22] MEDS: ALBUTEROL SO4 6.7 GM HFA INHALER IH PRN (12:12)
[2016-11-22] MEDS ORDERED: traZODone HCL 100 MG TABLET (FP) PO SCH (22:00)
== END 2016-11-22 13:17 | disposition other institution (70) | DRG 774 ==
LOC: YASAS 12:15 → Y6N 15:04
PROVIDERS: ADMIT Internal Medicine; ATTEND Internal Medicine
PROC: HZ2ZZZZ Detoxification Services for Substance Abuse Treatment (ICD-10-PCS; principal; 2016-11-18)
DX: F10.230 Alcohol dependence with withdrawal, uncomplicated (principal); F14.20 Cocaine dependence, uncomplicated; F12.20 Cannabis dependence, uncomplicated; F17.210 Nicotine dependence, cigarettes, uncomplicated; F19.24 Other psychoactive substance dependence with psychoactive substance-induced mood disorder; F31.81 Bipolar II disorder; G47.00 Insomnia, unspecified; J45.909 Unspecified asthma, uncomplicated; E11.9 Type 2 diabetes mellitus without complications; E78.5 Hyperlipidemia, unspecified; E66.9 Obesity, unspecified; Z79.4 Long term (current) use of insulin; Z68.35 Body mass index [BMI] 35.0-35.9, adult; I10 Essential (primary) hypertension; K21.9 Gastro-esophageal reflux disease without esophagitis; R00.0 Tachycardia, unspecified; R21 Rash and other nonspecific skin eruption; D69.2 Other nonthrombocytopenic purpura
CPT/HCPCS: 36415; 71020-TC; 80053; 81003; 81015; 85025; 85027; 85651; 86593; 93005; 93010; 94640

== ENCOUNTER 2016-11-22 13:20 | Inpatient (IN) | payer OTHER ==
[2016-11-22] MEDS ORDERED: MAGNESIUM CITRATE 300 ML BOTTLE PO PRN (14:22)
[2016-11-22] MEDS ORDERED: MAG HYDROX/AL HYDROX/SIMETH 30 ML UNIT-DOSE CUP PO PRN (14:22)
[2016-11-22] MEDS ORDERED: IBUPROFEN 400 MG TABLET (FP) PO PRN (14:22)
[2016-11-22] MEDS ORDERED: LOPERAMIDE HCL 2 MG CAPSULE PO PRN (14:22)
[2016-11-22] MEDS ORDERED: P-EPHED 60MG/TRIPROLIDI 2.5MG TABLET PO PRN (14:22)
[2016-11-22] MEDS ORDERED: NICOTINE POLACRILEX 2 MG GUM BUC PRN (14:22)
[2016-11-22] MEDS ORDERED: diphenhydrAMINE HCL 50 MG CAPSULE PO PRN (14:22)
[2016-11-22] MEDS ORDERED: ALBUTEROL SO4 2.5/IPRATROPIUM 0.5 INH SOL 3 ML VIAL.NEB. NEB PRN (14:35)
--- NOTE | 2016-11-22 14:36 | HP ---
[facility] Rehab Assess/Revision - Admission History Admitted to Rehab from: [facility] Date of Admission to Rehab: 11/22/16 - Vital signs Vital Signs: Vital Signs Period Temp Pulse Resp BP Sys/Galeas Pulse Ox Last 24 Hr 97.8 F 99 18 139/97 - Findings Detox History & Physical reviewed: Yes Concur with findings: Yes
[2016-11-22 15:10] VITALS: BMI 35.8
[2016-11-22] MEDS: ALBUTEROL SO4 2.5/IPRATROPIUM 0.5 INH SOL 3 ML VIAL.NEB. NEB SCH ×2 (17:09→21:17)
[2016-11-22] MEDS: IBUPROFEN 400 MG TABLET (FP) PO PRN (17:13)
[2016-11-22] MEDS: diphenhydrAMINE HCL 50 MG CAPSULE PO SCH (18:58)
[2016-11-22] MEDS: THIAMINE HCL 100 MG TABLET (FP) PO SCH (21:16)
[2016-11-22] MEDS: MONTELUKAST NA 10 MG TABLET PO SCH (21:17)
[2016-11-22] MEDS: traZODone HCL 100 MG TABLET (FP) PO SCH (21:17)
[2016-11-22] MEDS: LISINOPRIL 20 MG TABLET (FP) PO SCH (21:17)
[2016-11-22] MEDS: ATORVASTATIN CA 20 MG TABLET (FP) PO SCH (21:17)
[2016-11-22] MEDS: METHYL SALICYLATE/MENTHOL OINT 30 GM TUBE TP SCH (21:18)
[2016-11-22] MEDS: FLUOCINONIDE 0.05% TOP OINT (60 GM TUBE) TP SCH (21:19)
[2016-11-22] MEDS: BUDESONIDE/FORMETEROL FUMARATE 160/4.5 mcg INHALER IH SCH (21:20)
[2016-11-22] MEDS: PRAMIPEXOLE DIHYDROCHLORIDE PO SCH (21:20)
[2016-11-23] MEDS: diphenhydrAMINE HCL 50 MG CAPSULE PO SCH ×4 (01:02→17:43)
[2016-11-23] MEDS: guaiFENesin/D-METHORPHAN HB 10 ML UNIT-DOSE CUPS PO PRN ×2 (02:20→23:02)
[2016-11-23] MEDS: INSULIN SLIDING SCALE (NOVOLOG) 1 VIAL SQ SCH ×2 (06:16→16:47)
[2016-11-23] MEDS ORDERED: metFORMIN HCL 500 MG TABLET (FP) PO SCH (07:00)
[2016-11-23] MEDS ORDERED: INSULIN (NOVOLOG) ASPART 100 UNITS/ML 10ML VIAL ONE ×2 (07:14→16:41)
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
[2016-11-23] MEDS: ALBUTEROL SO4 2.5/IPRATROPIUM 0.5 INH SOL 3 ML VIAL.NEB. NEB SCH ×4 (10:14→22:15)
[2016-11-23] MEDS: METHYL SALICYLATE/MENTHOL OINT 30 GM TUBE TP SCH ×2 (10:15→21:50)
[2016-11-23] MEDS: predniSONE 20 MG TABLET (UD) PO SCH (10:16)
[2016-11-23] MEDS: HYDROCHLOROTHIAZIDE 12.5 MG CAPSULE (FP) PO SCH (10:16)
[2016-11-23] MEDS: NICOTINE 7 MG/24 HOURS TOPICAL PATCH TD SCH (10:17)
[2016-11-23] MEDS: amLODIPine BESYLATE 10 MG TABLET (FP) PO SCH (10:17)
[2016-11-23] MEDS: FLUOCINONIDE 0.05% TOP OINT (60 GM TUBE) TP SCH ×2 (10:17→21:46)
[2016-11-23] MEDS: PATIENT'S OWN MEDICATION (NON-FORMULARY) (Omeprazole 40 MG) PO SCH (10:18)
[2016-11-23] MEDS: PRENATAL VITAMINS W/ FOLIC ACID TABLET (FP) PO SCH (10:18)
[2016-11-23] MEDS: LISINOPRIL 20 MG TABLET (FP) PO SCH ×2 (10:19→21:49)
[2016-11-23] MEDS: BUDESONIDE/FORMETEROL FUMARATE 160/4.5 mcg INHALER IH SCH ×2 (10:19→21:47)
[2016-11-23] MEDS: ARIPiprazole 10 MG TABLET PO SCH (10:21)
[2016-11-23] MEDS: busPIRone HCL 10 MG TABLET (FP) PO SCH ×2 (10:21→21:48)
[2016-11-23] MEDS: PATIENT'S OWN MEDICATION (NON-FORMULARY) (Omega-3 Fatty Acids [Omega-3] 1,000 MG) PO SCH ×2 (11:12→21:49)
[2016-11-23] MEDS: CYCLOBENZAPRINE HCL 10 MG TABLET (FP) PO PRN (12:23)
[2016-11-23] MEDS: QUEtiapine FUMARATE 25 MG TABLET (FP) PO SCH ×2 (13:00→21:49)
[2016-11-23] MEDS: IBUPROFEN 400 MG TABLET (FP) PO PRN (15:17)
[2016-11-23] MEDS: ASPIRIN COATED 81 MG TABLET.EC PO SCH (15:17)
[2016-11-23] MEDS: MENTHOL/PHENOL 1 EACH UD MM PRN ×2 (15:58→23:02)
[2016-11-23] MEDS: ALBUTEROL SO4 6.7 GM HFA INHALER IH PRN ×2 (16:25→21:47)
[2016-11-23] MEDS: ACETAMINOPHEN 325 MG TABLET (FP) PO PRN (17:52)
[2016-11-23] MEDS: THIAMINE HCL 100 MG TABLET (FP) PO SCH (21:48)
[2016-11-23] MEDS: traZODone HCL 100 MG TABLET (FP) PO SCH (21:49)
[2016-11-23] MEDS: MONTELUKAST NA 10 MG TABLET PO SCH (21:49)
[2016-11-23] MEDS: PRAMIPEXOLE DIHYDROCHLORIDE PO SCH (21:49)
[2016-11-23] MEDS: ATORVASTATIN CA 20 MG TABLET (FP) PO SCH (21:50)
[2016-11-24] MEDS: diphenhydrAMINE HCL 50 MG CAPSULE PO SCH ×4 (01:00→18:15)
[2016-11-24] MEDS: IBUPROFEN 400 MG TABLET (FP) PO PRN ×2 (03:42→22:45)
[2016-11-24] MEDS: QUEtiapine FUMARATE 25 MG TABLET (FP) PO SCH ×3 (06:41→21:13)
[2016-11-24] MEDS: metFORMIN HCL 500 MG TABLET (FP) PO SCH (06:46)
[2016-11-24] MEDS ORDERED: INSULIN (NOVOLOG) ASPART 100 UNITS/ML 10ML VIAL ONE (07:27)
[2016-11-24] MEDS: INSULIN SLIDING SCALE (NOVOLOG) 1 VIAL SQ SCH ×2 (07:36→17:20)
[2016-11-24] MEDS: ALBUTEROL SO4 2.5/IPRATROPIUM 0.5 INH SOL 3 ML VIAL.NEB. NEB SCH ×4 (09:32→21:16)
[2016-11-24] MEDS: PATIENT'S OWN MEDICATION (NON-FORMULARY) (Omega-3 Fatty Acids [Omega-3] 1,000 MG) PO SCH ×2 (09:32→22:25)
[2016-11-24] MEDS: LISINOPRIL 20 MG TABLET (FP) PO SCH ×2 (09:41→21:13)
[2016-11-24] MEDS: METHYL SALICYLATE/MENTHOL OINT 30 GM TUBE TP SCH ×2 (09:41→21:12)
[2016-11-24] MEDS: FLUOCINONIDE 0.05% TOP OINT (60 GM TUBE) TP SCH ×2 (09:41→21:13)
[2016-11-24] MEDS: busPIRone HCL 10 MG TABLET (FP) PO SCH ×2 (09:41→21:13)
[2016-11-24] MEDS: HYDROCHLOROTHIAZIDE 12.5 MG CAPSULE (FP) PO SCH (09:41)
[2016-11-24] MEDS: ASPIRIN COATED 81 MG TABLET.EC PO SCH (09:41)
[2016-11-24] MEDS: amLODIPine BESYLATE 10 MG TABLET (FP) PO SCH (09:41)
[2016-11-24] MEDS: ARIPiprazole 10 MG TABLET PO SCH (09:41)
[2016-11-24] MEDS: predniSONE 20 MG TABLET (UD) PO SCH (09:41)
[2016-11-24] MEDS: BUDESONIDE/FORMETEROL FUMARATE 160/4.5 mcg INHALER IH SCH ×2 (09:42→21:12)
[2016-11-24] MEDS: PATIENT'S OWN MEDICATION (NON-FORMULARY) (Omeprazole 40 MG) PO SCH (09:42)
[2016-11-24] MEDS: NICOTINE 7 MG/24 HOURS TOPICAL PATCH TD SCH (09:42)
[2016-11-24] MEDS: PRENATAL VITAMINS W/ FOLIC ACID TABLET (FP) PO SCH (09:42)
[2016-11-24] MEDS: CYCLOBENZAPRINE HCL 10 MG TABLET (FP) PO PRN (12:29)
[2016-11-24] MEDS: MAGNESIUM HYDROX 2400MG/30ML ORAL SUSPENSION 30 ML CUP PO PRN (13:18)
[2016-11-24] MEDS: guaiFENesin/D-METHORPHAN HB 10 ML UNIT-DOSE CUPS PO PRN (14:29)
[2016-11-24] MEDS: MONTELUKAST NA 10 MG TABLET PO SCH (21:13)
[2016-11-24] MEDS: THIAMINE HCL 100 MG TABLET (FP) PO SCH (21:13)
[2016-11-24] MEDS: ATORVASTATIN CA 20 MG TABLET (FP) PO SCH (21:13)
[2016-11-24] MEDS: traZODone HCL 100 MG TABLET (FP) PO SCH (21:13)
[2016-11-24] MEDS: PRAMIPEXOLE DIHYDROCHLORIDE PO SCH (21:15)
[2016-11-25] MEDS: diphenhydrAMINE HCL 50 MG CAPSULE PO SCH ×5 (00:01→23:37)
[2016-11-25] MEDS: QUEtiapine FUMARATE 25 MG TABLET (FP) PO SCH ×3 (06:05→21:04)
[2016-11-25] MEDS: INSULIN SLIDING SCALE (NOVOLOG) 1 VIAL SQ SCH ×2 (06:06→17:20)
[2016-11-25] MEDS ORDERED: INSULIN (NOVOLOG) ASPART 100 UNITS/ML 10ML VIAL ONE (06:11)
[2016-11-25] MEDS: metFORMIN HCL 500 MG TABLET (FP) PO SCH (06:30)
[2016-11-25] MEDS: ALBUTEROL SO4 2.5/IPRATROPIUM 0.5 INH SOL 3 ML VIAL.NEB. NEB SCH ×4 (09:01→21:04)
[2016-11-25] MEDS: PATIENT'S OWN MEDICATION (NON-FORMULARY) (Omega-3 Fatty Acids [Omega-3] 1,000 MG) PO SCH ×2 (09:42→21:07)
[2016-11-25] MEDS: METHYL SALICYLATE/MENTHOL OINT 30 GM TUBE TP SCH ×2 (09:42→21:06)
[2016-11-25] MEDS: FLUOCINONIDE 0.05% TOP OINT (60 GM TUBE) TP SCH ×2 (09:42→21:06)
[2016-11-25] MEDS: PATIENT'S OWN MEDICATION (NON-FORMULARY) (Omeprazole 40 MG) PO SCH (09:42)
[2016-11-25] MEDS: BUDESONIDE/FORMETEROL FUMARATE 160/4.5 mcg INHALER IH SCH ×2 (09:42→21:07)
[2016-11-25] MEDS: amLODIPine BESYLATE 10 MG TABLET (FP) PO SCH (09:43)
[2016-11-25] MEDS: ARIPiprazole 10 MG TABLET PO SCH (09:43)
[2016-11-25] MEDS: busPIRone HCL 10 MG TABLET (FP) PO SCH ×2 (09:43→21:04)
[2016-11-25] MEDS: HYDROCHLOROTHIAZIDE 12.5 MG CAPSULE (FP) PO SCH (09:43)
[2016-11-25] MEDS: LISINOPRIL 20 MG TABLET (FP) PO SCH ×2 (09:43→21:04)
[2016-11-25] MEDS: NICOTINE 7 MG/24 HOURS TOPICAL PATCH TD SCH (09:43)
[2016-11-25] MEDS: PRENATAL VITAMINS W/ FOLIC ACID TABLET (FP) PO SCH (09:43)
[2016-11-25] MEDS: ASPIRIN COATED 81 MG TABLET.EC PO SCH (09:43)
[2016-11-25] MEDS: guaiFENesin/D-METHORPHAN HB 10 ML UNIT-DOSE CUPS PO PRN (12:38)
[2016-11-25] MEDS: IBUPROFEN 400 MG TABLET (FP) PO PRN (14:18)
[2016-11-25] MEDS: ACETAMINOPHEN 325 MG TABLET (FP) PO PRN (17:22)
[2016-11-25] MEDS: MONTELUKAST NA 10 MG TABLET PO SCH (21:04)
[2016-11-25] MEDS: traZODone HCL 100 MG TABLET (FP) PO SCH (21:04)
[2016-11-25] MEDS: ATORVASTATIN CA 20 MG TABLET (FP) PO SCH (21:04)
[2016-11-25] MEDS: PRAMIPEXOLE DIHYDROCHLORIDE PO SCH (21:07)
[2016-11-25] MEDS: THIAMINE HCL 100 MG TABLET (FP) PO SCH (21:08)
[2016-11-26] MEDS: INSULIN SLIDING SCALE (NOVOLOG) 1 VIAL SQ SCH ×2 (06:14→17:13)
[2016-11-26] MEDS: metFORMIN HCL 500 MG TABLET (FP) PO SCH (06:14)
[2016-11-26] MEDS: diphenhydrAMINE HCL 50 MG CAPSULE PO SCH ×3 (06:14→17:15)
[2016-11-26] MEDS: QUEtiapine FUMARATE 25 MG TABLET (FP) PO SCH ×3 (06:14→21:07)
[2016-11-26] MEDS: CYCLOBENZAPRINE HCL 10 MG TABLET (FP) PO PRN (06:17)
[2016-11-26] MEDS: ALBUTEROL SO4 2.5/IPRATROPIUM 0.5 INH SOL 3 ML VIAL.NEB. NEB SCH ×4 (09:05→21:09)
[2016-11-26] MEDS: PATIENT'S OWN MEDICATION (NON-FORMULARY) (Omega-3 Fatty Acids [Omega-3] 1,000 MG) PO SCH ×2 (09:44→21:09)
[2016-11-26] MEDS: PRENATAL VITAMINS W/ FOLIC ACID TABLET (FP) PO SCH (09:45)
[2016-11-26] MEDS: PATIENT'S OWN MEDICATION (NON-FORMULARY) (Omeprazole 40 MG) PO SCH (09:45)
[2016-11-26] MEDS: METHYL SALICYLATE/MENTHOL OINT 30 GM TUBE TP SCH ×2 (09:52→21:08)
[2016-11-26] MEDS: busPIRone HCL 10 MG TABLET (FP) PO SCH ×2 (09:52→21:07)
[2016-11-26] MEDS: ARIPiprazole 10 MG TABLET PO SCH (09:52)
[2016-11-26] MEDS: HYDROCHLOROTHIAZIDE 12.5 MG CAPSULE (FP) PO SCH (09:53)
[2016-11-26] MEDS: ASPIRIN COATED 81 MG TABLET.EC PO SCH (09:53)
[2016-11-26] MEDS: FLUOCINONIDE 0.05% TOP OINT (60 GM TUBE) TP SCH ×2 (09:53→21:08)
[2016-11-26] MEDS: BUDESONIDE/FORMETEROL FUMARATE 160/4.5 mcg INHALER IH SCH ×2 (09:54→21:08)
[2016-11-26] MEDS: LISINOPRIL 20 MG TABLET (FP) PO SCH ×2 (09:54→21:07)
[2016-11-26] MEDS: amLODIPine BESYLATE 10 MG TABLET (FP) PO SCH (09:54)
[2016-11-26] MEDS: NICOTINE 7 MG/24 HOURS TOPICAL PATCH TD SCH (09:54)
[2016-11-26] MEDS ORDERED: hydrOXYzine PAMOATE 50 MG CAPSULE (FP) PO PRN (14:43)
[2016-11-26] MEDS: LIDOCAINE 5% TOPICAL PATCH TP SCH (15:40)
[2016-11-26] MEDS: THIAMINE HCL 100 MG TABLET (FP) PO SCH (21:06)
[2016-11-26] MEDS: ATORVASTATIN CA 20 MG TABLET (FP) PO SCH (21:06)
[2016-11-26] MEDS: traZODone HCL 100 MG TABLET (FP) PO SCH (21:07)
[2016-11-26] MEDS: MONTELUKAST NA 10 MG TABLET PO SCH (21:07)
[2016-11-26] MEDS: PRAMIPEXOLE DIHYDROCHLORIDE PO SCH (21:10)
[2016-11-26] MEDS: IBUPROFEN 400 MG TABLET (FP) PO PRN (21:11)
[2016-11-27] MEDS: diphenhydrAMINE HCL 50 MG CAPSULE PO SCH ×4 (00:25→17:40)
[2016-11-27] MEDS: metFORMIN HCL 500 MG TABLET (FP) PO SCH (06:00)
[2016-11-27] MEDS: QUEtiapine FUMARATE 25 MG TABLET (FP) PO SCH ×3 (06:01→21:12)
[2016-11-27] MEDS: INSULIN SLIDING SCALE (NOVOLOG) 1 VIAL SQ SCH ×2 (06:01→16:52)
[2016-11-27] MEDS: IBUPROFEN 400 MG TABLET (FP) PO PRN ×2 (06:02→12:09)
[2016-11-27] MEDS: ALBUTEROL SO4 2.5/IPRATROPIUM 0.5 INH SOL 3 ML VIAL.NEB. NEB SCH ×4 (09:54→21:17)
[2016-11-27] MEDS: LIDOCAINE 5% TOPICAL PATCH TP SCH (09:54)
[2016-11-27] MEDS: METHYL SALICYLATE/MENTHOL OINT 30 GM TUBE TP SCH ×2 (09:55→21:17)
[2016-11-27] MEDS: HYDROCHLOROTHIAZIDE 12.5 MG CAPSULE (FP) PO SCH (09:55)
[2016-11-27] MEDS: ASPIRIN COATED 81 MG TABLET.EC PO SCH (09:55)
[2016-11-27] MEDS: ARIPiprazole 10 MG TABLET PO SCH (09:55)
[2016-11-27] MEDS: busPIRone HCL 10 MG TABLET (FP) PO SCH ×2 (09:55→21:13)
[2016-11-27] MEDS: FLUOCINONIDE 0.05% TOP OINT (60 GM TUBE) TP SCH ×2 (09:56→21:17)
[2016-11-27] MEDS: PRENATAL VITAMINS W/ FOLIC ACID TABLET (FP) PO SCH (09:56)
[2016-11-27] MEDS: NICOTINE 7 MG/24 HOURS TOPICAL PATCH TD SCH (09:56)
[2016-11-27] MEDS: amLODIPine BESYLATE 10 MG TABLET (FP) PO SCH (09:56)
[2016-11-27] MEDS: LISINOPRIL 20 MG TABLET (FP) PO SCH ×2 (09:56→21:12)
[2016-11-27] MEDS: PATIENT'S OWN MEDICATION (NON-FORMULARY) (Omega-3 Fatty Acids [Omega-3] 1,000 MG) PO SCH ×2 (09:57→21:14)
[2016-11-27] MEDS: BUDESONIDE/FORMETEROL FUMARATE 160/4.5 mcg INHALER IH SCH ×2 (09:57→21:12)
[2016-11-27] MEDS: PATIENT'S OWN MEDICATION (NON-FORMULARY) (Omeprazole 40 MG) PO SCH (09:57)
[2016-11-27] MEDS: CYCLOBENZAPRINE HCL 10 MG TABLET (FP) PO PRN ×2 (09:58→21:15)
[2016-11-27] MEDS ORDERED: INSULIN (NOVOLOG) ASPART 100 UNITS/ML 10ML VIAL ONE (16:52)
[2016-11-27] MEDS: ALBUTEROL SO4 6.7 GM HFA INHALER IH PRN (16:54)
[2016-11-27] MEDS: THIAMINE HCL 100 MG TABLET (FP) PO SCH (21:12)
[2016-11-27] MEDS: MONTELUKAST NA 10 MG TABLET PO SCH (21:13)
[2016-11-27] MEDS: ATORVASTATIN CA 20 MG TABLET (FP) PO SCH (21:13)
[2016-11-27] MEDS: traZODone HCL 100 MG TABLET (FP) PO SCH (21:13)
[2016-11-27] MEDS: PRAMIPEXOLE DIHYDROCHLORIDE PO SCH (21:14)
[2016-11-28] MEDS: diphenhydrAMINE HCL 50 MG CAPSULE PO SCH ×4 (00:46→18:01)
[2016-11-28] MEDS: QUEtiapine FUMARATE 25 MG TABLET (FP) PO SCH ×3 (06:17→21:14)
[2016-11-28] MEDS: metFORMIN HCL 500 MG TABLET (FP) PO SCH (06:17)
[2016-11-28] MEDS: INSULIN SLIDING SCALE (NOVOLOG) 1 VIAL SQ SCH ×2 (06:18→16:43)
[2016-11-28] MEDS: IBUPROFEN 400 MG TABLET (FP) PO PRN (07:35)
[2016-11-28] MEDS: PATIENT'S OWN MEDICATION (NON-FORMULARY) (Omega-3 Fatty Acids [Omega-3] 1,000 MG) PO SCH ×2 (09:12→21:14)
[2016-11-28] MEDS: busPIRone HCL 10 MG TABLET (FP) PO SCH ×2 (09:13→21:14)
[2016-11-28] MEDS: FLUOCINONIDE 0.05% TOP OINT (60 GM TUBE) TP SCH ×2 (09:13→21:14)
[2016-11-28] MEDS: amLODIPine BESYLATE 10 MG TABLET (FP) PO SCH (09:13)
[2016-11-28] MEDS: ARIPiprazole 10 MG TABLET PO SCH (09:13)
[2016-11-28] MEDS: LISINOPRIL 20 MG TABLET (FP) PO SCH ×2 (09:13→21:15)
[2016-11-28] MEDS: HYDROCHLOROTHIAZIDE 12.5 MG CAPSULE (FP) PO SCH (09:13)
[2016-11-28] MEDS: METHYL SALICYLATE/MENTHOL OINT 30 GM TUBE TP SCH ×2 (09:13→21:14)
[2016-11-28] MEDS: PATIENT'S OWN MEDICATION (NON-FORMULARY) (Omeprazole 40 MG) PO SCH (09:13)
[2016-11-28] MEDS: ASPIRIN COATED 81 MG TABLET.EC PO SCH (09:13)
[2016-11-28] MEDS: LIDOCAINE 5% TOPICAL PATCH TP SCH (09:14)
[2016-11-28] MEDS: ALBUTEROL SO4 2.5/IPRATROPIUM 0.5 INH SOL 3 ML VIAL.NEB. NEB SCH ×4 (09:14→21:15)
[2016-11-28] MEDS: BUDESONIDE/FORMETEROL FUMARATE 160/4.5 mcg INHALER IH SCH ×2 (09:19→21:13)
[2016-11-28] MEDS: NICOTINE 7 MG/24 HOURS TOPICAL PATCH TD SCH (09:19)
[2016-11-28] MEDS: PRENATAL VITAMINS W/ FOLIC ACID TABLET (FP) PO SCH (10:01)
[2016-11-28] MEDS: CYCLOBENZAPRINE HCL 10 MG TABLET (FP) PO PRN (12:12)
[2016-11-28] MEDS: PRAMIPEXOLE DIHYDROCHLORIDE PO SCH (21:13)
[2016-11-28] MEDS: MONTELUKAST NA 10 MG TABLET PO SCH (21:14)
[2016-11-28] MEDS: THIAMINE HCL 100 MG TABLET (FP) PO SCH (21:14)
[2016-11-28] MEDS: ATORVASTATIN CA 20 MG TABLET (FP) PO SCH (21:14)
[2016-11-28] MEDS: traZODone HCL 100 MG TABLET (FP) PO SCH (21:15)
[2016-11-29] MEDS: diphenhydrAMINE HCL 50 MG CAPSULE PO SCH ×4 (00:19→17:15)
[2016-11-29] MEDS: metFORMIN HCL 500 MG TABLET (FP) PO SCH (06:11)
[2016-11-29] MEDS: QUEtiapine FUMARATE 25 MG TABLET (FP) PO SCH ×3 (06:11→21:13)
[2016-11-29] MEDS: INSULIN SLIDING SCALE (NOVOLOG) 1 VIAL SQ SCH ×2 (06:12→17:16)
[2016-11-29] MEDS: PATIENT'S OWN MEDICATION (NON-FORMULARY) (Omega-3 Fatty Acids [Omega-3] 1,000 MG) PO SCH ×2 (09:01→21:17)
[2016-11-29] MEDS: ALBUTEROL SO4 2.5/IPRATROPIUM 0.5 INH SOL 3 ML VIAL.NEB. NEB SCH ×4 (09:01→21:16)
[2016-11-29] MEDS: PATIENT'S OWN MEDICATION (NON-FORMULARY) (Omeprazole 40 MG) PO SCH (09:02)
[2016-11-29] MEDS: busPIRone HCL 10 MG TABLET (FP) PO SCH ×2 (09:51→21:13)
[2016-11-29] MEDS: HYDROCHLOROTHIAZIDE 12.5 MG CAPSULE (FP) PO SCH (09:51)
[2016-11-29] MEDS: LISINOPRIL 20 MG TABLET (FP) PO SCH ×2 (09:51→21:17)
[2016-11-29] MEDS: PRENATAL VITAMINS W/ FOLIC ACID TABLET (FP) PO SCH (09:51)
[2016-11-29] MEDS: ARIPiprazole 10 MG TABLET PO SCH (09:51)
[2016-11-29] MEDS: amLODIPine BESYLATE 10 MG TABLET (FP) PO SCH (09:51)
[2016-11-29] MEDS: ASPIRIN COATED 81 MG TABLET.EC PO SCH (09:51)
[2016-11-29] MEDS: BUDESONIDE/FORMETEROL FUMARATE 160/4.5 mcg INHALER IH SCH ×2 (09:52→21:17)
[2016-11-29] MEDS: LIDOCAINE 5% TOPICAL PATCH TP SCH (09:53)
[2016-11-29] MEDS: FLUOCINONIDE 0.05% TOP OINT (60 GM TUBE) TP SCH ×2 (09:53→21:17)
[2016-11-29] MEDS: METHYL SALICYLATE/MENTHOL OINT 30 GM TUBE TP SCH ×2 (09:53→21:16)
[2016-11-29] MEDS: NICOTINE 7 MG/24 HOURS TOPICAL PATCH TD SCH (09:54)
[2016-11-29] MEDS: CYCLOBENZAPRINE HCL 10 MG TABLET (FP) PO PRN ×2 (10:43→21:18)
[2016-11-29] MEDS ORDERED: PT OWN MED DRAWER 7, Y5N ONE (10:44)
[2016-11-29] MEDS: MENTHOL/PHENOL 1 EACH UD MM PRN (13:32)
[2016-11-29] MEDS: IBUPROFEN 400 MG TABLET (FP) PO PRN (15:50)
[2016-11-29] MEDS: traZODone HCL 100 MG TABLET (FP) PO SCH (21:13)
[2016-11-29] MEDS: ATORVASTATIN CA 20 MG TABLET (FP) PO SCH (21:13)
[2016-11-29] MEDS: MONTELUKAST NA 10 MG TABLET PO SCH (21:13)
[2016-11-29] MEDS: PRAMIPEXOLE DIHYDROCHLORIDE PO SCH (21:17)
[2016-11-29] MEDS: THIAMINE HCL 100 MG TABLET (FP) PO SCH (21:45)
[2016-11-30] MEDS: QUEtiapine FUMARATE 25 MG TABLET (FP) PO SCH ×3 (06:27→21:24)
[2016-11-30] MEDS: metFORMIN HCL 500 MG TABLET (FP) PO SCH (06:28)
[2016-11-30] MEDS: IBUPROFEN 400 MG TABLET (FP) PO PRN ×2 (06:30→17:06)
[2016-11-30] MEDS: diphenhydrAMINE HCL 50 MG CAPSULE PO SCH ×3 (08:13→17:03)
[2016-11-30] MEDS: INSULIN SLIDING SCALE (NOVOLOG) 1 VIAL SQ SCH ×2 (08:15→17:04)
[2016-11-30] MEDS: ALBUTEROL SO4 2.5/IPRATROPIUM 0.5 INH SOL 3 ML VIAL.NEB. NEB SCH ×4 (09:45→21:27)
[2016-11-30] MEDS: LIDOCAINE 5% TOPICAL PATCH TP SCH (10:12)
[2016-11-30] MEDS: PATIENT'S OWN MEDICATION (NON-FORMULARY) (Omega-3 Fatty Acids [Omega-3] 1,000 MG) PO SCH ×2 (10:12→21:28)
[2016-11-30] MEDS: METHYL SALICYLATE/MENTHOL OINT 30 GM TUBE TP SCH ×2 (10:13→21:27)
[2016-11-30] MEDS: PRENATAL VITAMINS W/ FOLIC ACID TABLET (FP) PO SCH (10:13)
[2016-11-30] MEDS: PATIENT'S OWN MEDICATION (NON-FORMULARY) (Omeprazole 40 MG) PO SCH (10:13)
[2016-11-30] MEDS: BUDESONIDE/FORMETEROL FUMARATE 160/4.5 mcg INHALER IH SCH ×2 (10:13→21:28)
[2016-11-30] MEDS: HYDROCHLOROTHIAZIDE 12.5 MG CAPSULE (FP) PO SCH (10:14)
[2016-11-30] MEDS: ARIPiprazole 10 MG TABLET PO SCH (10:14)
[2016-11-30] MEDS: FLUOCINONIDE 0.05% TOP OINT (60 GM TUBE) TP SCH ×2 (10:14→21:28)
[2016-11-30] MEDS: ASPIRIN COATED 81 MG TABLET.EC PO SCH (10:14)
[2016-11-30] MEDS: LISINOPRIL 20 MG TABLET (FP) PO SCH ×2 (10:14→21:24)
[2016-11-30] MEDS: amLODIPine BESYLATE 10 MG TABLET (FP) PO SCH (10:14)
[2016-11-30] MEDS: NICOTINE 7 MG/24 HOURS TOPICAL PATCH TD SCH (10:14)
[2016-11-30] MEDS: busPIRone HCL 10 MG TABLET (FP) PO SCH ×2 (10:14→21:24)
[2016-11-30] MEDS: CYCLOBENZAPRINE HCL 10 MG TABLET (FP) PO PRN ×2 (10:16→17:06)
[2016-11-30] MEDS: ALBUTEROL SO4 6.7 GM HFA INHALER IH PRN (10:18)
[2016-11-30] MEDS ORDERED: PT OWN MED DRAWER 7, Y5N ONE ×2 (10:19→23:20)
[2016-11-30] MEDS: MONTELUKAST NA 10 MG TABLET PO SCH (21:24)
[2016-11-30] MEDS: traZODone HCL 100 MG TABLET (FP) PO SCH (21:24)
[2016-11-30] MEDS: ATORVASTATIN CA 20 MG TABLET (FP) PO SCH (21:24)
[2016-11-30] MEDS: THIAMINE HCL 100 MG TABLET (FP) PO SCH (21:24)
[2016-11-30] MEDS: PRAMIPEXOLE DIHYDROCHLORIDE PO SCH (21:28)
[2016-11-30] MEDS ORDERED: INSULIN (NOVOLOG) ASPART 100 UNITS/ML 10ML VIAL ONE (23:24)
[2016-12-01] MEDS: IBUPROFEN 400 MG TABLET (FP) PO PRN ×3 (00:48→16:52)
[2016-12-01] MEDS: diphenhydrAMINE HCL 50 MG CAPSULE PO SCH ×4 (00:48→17:32)
[2016-12-01] MEDS: metFORMIN HCL 500 MG TABLET (FP) PO SCH (06:20)
[2016-12-01] MEDS: QUEtiapine FUMARATE 25 MG TABLET (FP) PO SCH ×3 (06:20→21:14)
[2016-12-01] MEDS: INSULIN SLIDING SCALE (NOVOLOG) 1 VIAL SQ SCH ×2 (06:21→16:50)
[2016-12-01] MEDS: CYCLOBENZAPRINE HCL 10 MG TABLET (FP) PO PRN ×2 (06:22→16:52)
[2016-12-01] MEDS: ALBUTEROL SO4 2.5/IPRATROPIUM 0.5 INH SOL 3 ML VIAL.NEB. NEB SCH ×4 (09:48→22:08)
[2016-12-01] MEDS: ARIPiprazole 10 MG TABLET PO SCH (09:49)
[2016-12-01] MEDS: PRENATAL VITAMINS W/ FOLIC ACID TABLET (FP) PO SCH (09:50)
[2016-12-01] MEDS: amLODIPine BESYLATE 10 MG TABLET (FP) PO SCH (09:50)
[2016-12-01] MEDS: HYDROCHLOROTHIAZIDE 12.5 MG CAPSULE (FP) PO SCH (09:50)
[2016-12-01] MEDS: ASPIRIN COATED 81 MG TABLET.EC PO SCH (09:50)
[2016-12-01] MEDS: PATIENT'S OWN MEDICATION (NON-FORMULARY) (Omeprazole 40 MG) PO SCH (09:50)
[2016-12-01] MEDS: busPIRone HCL 10 MG TABLET (FP) PO SCH ×2 (09:51→21:14)
[2016-12-01] MEDS: PATIENT'S OWN MEDICATION (NON-FORMULARY) (Omega-3 Fatty Acids [Omega-3] 1,000 MG) PO SCH ×2 (09:51→21:14)
[2016-12-01] MEDS: LISINOPRIL 20 MG TABLET (FP) PO SCH ×2 (09:51→21:14)
[2016-12-01] MEDS: FLUOCINONIDE 0.05% TOP OINT (60 GM TUBE) TP SCH ×2 (09:52→21:13)
[2016-12-01] MEDS: METHYL SALICYLATE/MENTHOL OINT 30 GM TUBE TP SCH ×2 (09:52→21:15)
[2016-12-01] MEDS: LIDOCAINE 5% TOPICAL PATCH TP SCH (09:52)
[2016-12-01] MEDS: NICOTINE 7 MG/24 HOURS TOPICAL PATCH TD SCH (09:52)
[2016-12-01] MEDS: BUDESONIDE/FORMETEROL FUMARATE 160/4.5 mcg INHALER IH SCH ×2 (09:53→21:16)
[2016-12-01] MEDS: ALBUTEROL SO4 6.7 GM HFA INHALER IH PRN (19:44)
[2016-12-01] MEDS: PRAMIPEXOLE DIHYDROCHLORIDE PO SCH (21:13)
[2016-12-01] MEDS: ATORVASTATIN CA 20 MG TABLET (FP) PO SCH (21:14)
[2016-12-01] MEDS: THIAMINE HCL 100 MG TABLET (FP) PO SCH (21:14)
[2016-12-01] MEDS: traZODone HCL 100 MG TABLET (FP) PO SCH (21:14)
[2016-12-01] MEDS: MONTELUKAST NA 10 MG TABLET PO SCH (21:14)
[2016-12-02] MEDS: diphenhydrAMINE HCL 50 MG CAPSULE PO SCH ×4 (01:05→17:43)
[2016-12-02] MEDS: QUEtiapine FUMARATE 25 MG TABLET (FP) PO SCH ×3 (06:23→21:09)
[2016-12-02] MEDS: metFORMIN HCL 500 MG TABLET (FP) PO SCH (06:23)
[2016-12-02] MEDS: INSULIN SLIDING SCALE (NOVOLOG) 1 VIAL SQ SCH ×2 (06:24→16:36)
[2016-12-02] MEDS: PATIENT'S OWN MEDICATION (NON-FORMULARY) (Omega-3 Fatty Acids [Omega-3] 1,000 MG) PO SCH ×2 (09:53→21:08)
[2016-12-02] MEDS: ARIPiprazole 10 MG TABLET PO SCH (09:53)
[2016-12-02] MEDS: METHYL SALICYLATE/MENTHOL OINT 30 GM TUBE TP SCH ×2 (09:53→21:10)
[2016-12-02] MEDS: busPIRone HCL 10 MG TABLET (FP) PO SCH ×2 (09:53→21:08)
[2016-12-02] MEDS: HYDROCHLOROTHIAZIDE 12.5 MG CAPSULE (FP) PO SCH (09:54)
[2016-12-02] MEDS: ASPIRIN COATED 81 MG TABLET.EC PO SCH (09:54)
[2016-12-02] MEDS: LISINOPRIL 20 MG TABLET (FP) PO SCH ×2 (09:54→21:08)
[2016-12-02] MEDS: PATIENT'S OWN MEDICATION (NON-FORMULARY) (Omeprazole 40 MG) PO SCH (09:54)
[2016-12-02] MEDS: LIDOCAINE 5% TOPICAL PATCH TP SCH (09:55)
[2016-12-02] MEDS: amLODIPine BESYLATE 10 MG TABLET (FP) PO SCH (09:55)
[2016-12-02] MEDS: BUDESONIDE/FORMETEROL FUMARATE 160/4.5 mcg INHALER IH SCH ×2 (09:55→21:07)
[2016-12-02] MEDS: PRENATAL VITAMINS W/ FOLIC ACID TABLET (FP) PO SCH (09:55)
[2016-12-02] MEDS: NICOTINE 7 MG/24 HOURS TOPICAL PATCH TD SCH (09:56)
[2016-12-02] MEDS: FLUOCINONIDE 0.05% TOP OINT (60 GM TUBE) TP SCH ×2 (09:56→21:11)
[2016-12-02] MEDS: ALBUTEROL SO4 2.5/IPRATROPIUM 0.5 INH SOL 3 ML VIAL.NEB. NEB SCH ×4 (09:56→21:50)
[2016-12-02] MEDS: CYCLOBENZAPRINE HCL 10 MG TABLET (FP) PO PRN (09:57)
[2016-12-02] MEDS: IBUPROFEN 400 MG TABLET (FP) PO PRN (16:38)
[2016-12-02] MEDS: PRAMIPEXOLE DIHYDROCHLORIDE PO SCH (21:08)
[2016-12-02] MEDS: ATORVASTATIN CA 20 MG TABLET (FP) PO SCH (21:08)
[2016-12-02] MEDS: THIAMINE HCL 100 MG TABLET (FP) PO SCH (21:09)
[2016-12-02] MEDS: traZODone HCL 100 MG TABLET (FP) PO SCH (21:09)
[2016-12-02] MEDS: MONTELUKAST NA 10 MG TABLET PO SCH (21:34)
[2016-12-03] MEDS: CYCLOBENZAPRINE HCL 10 MG TABLET (FP) PO PRN ×3 (00:40→21:24)
[2016-12-03] MEDS: diphenhydrAMINE HCL 50 MG CAPSULE PO SCH ×4 (00:40→17:03)
[2016-12-03] MEDS: IBUPROFEN 400 MG TABLET (FP) PO PRN ×3 (00:40→21:24)
[2016-12-03] MEDS: QUEtiapine FUMARATE 25 MG TABLET (FP) PO SCH ×3 (05:57→21:20)
[2016-12-03] MEDS: metFORMIN HCL 500 MG TABLET (FP) PO SCH (06:01)
[2016-12-03] MEDS: INSULIN SLIDING SCALE (NOVOLOG) 1 VIAL SQ SCH ×2 (06:01→17:04)
[2016-12-03] MEDS: ALBUTEROL SO4 2.5/IPRATROPIUM 0.5 INH SOL 3 ML VIAL.NEB. NEB SCH ×4 (09:10→21:22)
[2016-12-03] MEDS: PATIENT'S OWN MEDICATION (NON-FORMULARY) (Omeprazole 40 MG) PO SCH (09:19)
[2016-12-03] MEDS: BUDESONIDE/FORMETEROL FUMARATE 160/4.5 mcg INHALER IH SCH ×2 (09:19→21:23)
[2016-12-03] MEDS: PATIENT'S OWN MEDICATION (NON-FORMULARY) (Omega-3 Fatty Acids [Omega-3] 1,000 MG) PO SCH ×2 (09:19→21:22)
[2016-12-03] MEDS: METHYL SALICYLATE/MENTHOL OINT 30 GM TUBE TP SCH ×2 (09:19→21:22)
[2016-12-03] MEDS: FLUOCINONIDE 0.05% TOP OINT (60 GM TUBE) TP SCH ×2 (09:19→21:22)
[2016-12-03] MEDS: ASPIRIN COATED 81 MG TABLET.EC PO SCH (09:20)
[2016-12-03] MEDS: LISINOPRIL 20 MG TABLET (FP) PO SCH ×2 (09:20→21:20)
[2016-12-03] MEDS: HYDROCHLOROTHIAZIDE 12.5 MG CAPSULE (FP) PO SCH (09:20)
[2016-12-03] MEDS: amLODIPine BESYLATE 10 MG TABLET (FP) PO SCH (09:20)
[2016-12-03] MEDS: PRENATAL VITAMINS W/ FOLIC ACID TABLET (FP) PO SCH (09:20)
[2016-12-03] MEDS: NICOTINE 7 MG/24 HOURS TOPICAL PATCH TD SCH (09:20)
[2016-12-03] MEDS: LIDOCAINE 5% TOPICAL PATCH TP SCH (09:21)
[2016-12-03] MEDS: ARIPiprazole 10 MG TABLET PO SCH (09:24)
[2016-12-03] MEDS: busPIRone HCL 10 MG TABLET (FP) PO SCH ×2 (09:24→21:20)
[2016-12-03] MEDS: MAGNESIUM HYDROX 2400MG/30ML ORAL SUSPENSION 30 ML CUP PO PRN (12:39)
[2016-12-03] MEDS ORDERED: PT OWN MED DRAWER 7, Y5N ONE (15:44)
[2016-12-03] MEDS: ATORVASTATIN CA 20 MG TABLET (FP) PO SCH (21:20)
[2016-12-03] MEDS: MONTELUKAST NA 10 MG TABLET PO SCH (21:20)
[2016-12-03] MEDS: traZODone HCL 100 MG TABLET (FP) PO SCH (21:20)
[2016-12-03] MEDS: PRAMIPEXOLE DIHYDROCHLORIDE PO SCH (21:23)
[2016-12-03] MEDS: THIAMINE HCL 100 MG TABLET (FP) PO SCH (21:24)
[2016-12-04] MEDS: diphenhydrAMINE HCL 50 MG CAPSULE PO SCH ×4 (00:55→17:06)
[2016-12-04] MEDS: QUEtiapine FUMARATE 25 MG TABLET (FP) PO SCH ×3 (06:13→22:27)
[2016-12-04] MEDS: metFORMIN HCL 500 MG TABLET (FP) PO SCH (06:14)
[2016-12-04] MEDS: INSULIN SLIDING SCALE (NOVOLOG) 1 VIAL SQ SCH ×2 (07:10→17:07)
[2016-12-04] MEDS: ALBUTEROL SO4 2.5/IPRATROPIUM 0.5 INH SOL 3 ML VIAL.NEB. NEB SCH ×4 (09:27→22:28)
[2016-12-04] MEDS: PATIENT'S OWN MEDICATION (NON-FORMULARY) (Omega-3 Fatty Acids [Omega-3] 1,000 MG) PO SCH ×2 (09:47→23:16)
[2016-12-04] MEDS: PATIENT'S OWN MEDICATION (NON-FORMULARY) (Omeprazole 40 MG) PO SCH (09:47)
[2016-12-04] MEDS: METHYL SALICYLATE/MENTHOL OINT 30 GM TUBE TP SCH ×2 (09:47→22:27)
[2016-12-04] MEDS: NICOTINE 7 MG/24 HOURS TOPICAL PATCH TD SCH (09:48)
[2016-12-04] MEDS: FLUOCINONIDE 0.05% TOP OINT (60 GM TUBE) TP SCH ×2 (09:48→22:33)
[2016-12-04] MEDS: BUDESONIDE/FORMETEROL FUMARATE 160/4.5 mcg INHALER IH SCH ×2 (09:48→22:33)
[2016-12-04] MEDS: PRENATAL VITAMINS W/ FOLIC ACID TABLET (FP) PO SCH (10:02)
[2016-12-04] MEDS: busPIRone HCL 10 MG TABLET (FP) PO SCH ×2 (10:02→22:27)
[2016-12-04] MEDS: ARIPiprazole 10 MG TABLET PO SCH (10:02)
[2016-12-04] MEDS: LISINOPRIL 20 MG TABLET (FP) PO SCH ×2 (10:02→22:27)
[2016-12-04] MEDS: ASPIRIN COATED 81 MG TABLET.EC PO SCH (10:02)
[2016-12-04] MEDS: HYDROCHLOROTHIAZIDE 12.5 MG CAPSULE (FP) PO SCH (10:02)
[2016-12-04] MEDS: amLODIPine BESYLATE 10 MG TABLET (FP) PO SCH (10:02)
[2016-12-04] MEDS: LIDOCAINE 5% TOPICAL PATCH TP SCH (10:03)
[2016-12-04] MEDS: CYCLOBENZAPRINE HCL 10 MG TABLET (FP) PO PRN (10:05)
[2016-12-04] MEDS: IBUPROFEN 400 MG TABLET (FP) PO PRN ×2 (17:08→22:32)
[2016-12-04] MEDS: ATORVASTATIN CA 20 MG TABLET (FP) PO SCH (22:27)
[2016-12-04] MEDS: traZODone HCL 100 MG TABLET (FP) PO SCH (22:27)
[2016-12-04] MEDS: MONTELUKAST NA 10 MG TABLET PO SCH (22:33)
[2016-12-04] MEDS: THIAMINE HCL 100 MG TABLET (FP) PO SCH (22:33)
[2016-12-04] MEDS: PRAMIPEXOLE DIHYDROCHLORIDE PO SCH (23:16)
[2016-12-05] MEDS: diphenhydrAMINE HCL 50 MG CAPSULE PO SCH ×4 (00:23→17:03)
[2016-12-05] MEDS: CYCLOBENZAPRINE HCL 10 MG TABLET (FP) PO PRN (00:24)
[2016-12-05] MEDS ORDERED: PT OWN MED DRAWER 7, Y5N ONE ×2 (00:42→08:56)
[2016-12-05] MEDS: INSULIN SLIDING SCALE (NOVOLOG) 1 VIAL SQ SCH ×2 (06:08→17:15)
[2016-12-05] MEDS: QUEtiapine FUMARATE 25 MG TABLET (FP) PO SCH ×3 (06:08→21:19)
[2016-12-05] MEDS: metFORMIN HCL 500 MG TABLET (FP) PO SCH (06:08)
[2016-12-05] MEDS: ALBUTEROL SO4 2.5/IPRATROPIUM 0.5 INH SOL 3 ML VIAL.NEB. NEB SCH ×4 (09:03→21:22)
[2016-12-05] MEDS: PATIENT'S OWN MEDICATION (NON-FORMULARY) (Omega-3 Fatty Acids [Omega-3] 1,000 MG) PO SCH ×2 (09:58→21:22)
[2016-12-05] MEDS: BUDESONIDE/FORMETEROL FUMARATE 160/4.5 mcg INHALER IH SCH ×2 (09:58→21:22)
[2016-12-05] MEDS: METHYL SALICYLATE/MENTHOL OINT 30 GM TUBE TP SCH ×2 (09:58→21:22)
[2016-12-05] MEDS: ARIPiprazole 10 MG TABLET PO SCH (09:59)
[2016-12-05] MEDS: PATIENT'S OWN MEDICATION (NON-FORMULARY) (Omeprazole 40 MG) PO SCH (09:59)
[2016-12-05] MEDS: amLODIPine BESYLATE 10 MG TABLET (FP) PO SCH (10:00)
[2016-12-05] MEDS: HYDROCHLOROTHIAZIDE 12.5 MG CAPSULE (FP) PO SCH (10:00)
[2016-12-05] MEDS: LISINOPRIL 20 MG TABLET (FP) PO SCH ×2 (10:00→21:19)
[2016-12-05] MEDS: ASPIRIN COATED 81 MG TABLET.EC PO SCH (10:00)
[2016-12-05] MEDS: busPIRone HCL 10 MG TABLET (FP) PO SCH ×2 (10:00→21:19)
[2016-12-05] MEDS: FLUOCINONIDE 0.05% TOP OINT (60 GM TUBE) TP SCH ×2 (10:01→21:22)
[2016-12-05] MEDS: LIDOCAINE 5% TOPICAL PATCH TP SCH (10:01)
[2016-12-05] MEDS: PRENATAL VITAMINS W/ FOLIC ACID TABLET (FP) PO SCH (10:01)
[2016-12-05] MEDS: NICOTINE 7 MG/24 HOURS TOPICAL PATCH TD SCH (10:02)
[2016-12-05] MEDS: IBUPROFEN 400 MG TABLET (FP) PO PRN (17:50)
[2016-12-05] MEDS: THIAMINE HCL 100 MG TABLET (FP) PO SCH (21:19)
[2016-12-05] MEDS: traZODone HCL 100 MG TABLET (FP) PO SCH (21:19)
[2016-12-05] MEDS: ATORVASTATIN CA 20 MG TABLET (FP) PO SCH (21:19)
[2016-12-05] MEDS: MONTELUKAST NA 10 MG TABLET PO SCH (21:19)
[2016-12-05] MEDS: PRAMIPEXOLE DIHYDROCHLORIDE PO SCH (21:22)
[2016-12-06] MEDS: diphenhydrAMINE HCL 50 MG CAPSULE PO SCH ×4 (00:49→17:11)
[2016-12-06] MEDS: metFORMIN HCL 500 MG TABLET (FP) PO SCH (06:08)
[2016-12-06] MEDS: QUEtiapine FUMARATE 25 MG TABLET (FP) PO SCH ×3 (06:08→21:11)
[2016-12-06] MEDS: INSULIN SLIDING SCALE (NOVOLOG) 1 VIAL SQ SCH ×2 (06:09→17:12)
[2016-12-06] MEDS: ALBUTEROL SO4 2.5/IPRATROPIUM 0.5 INH SOL 3 ML VIAL.NEB. NEB SCH ×4 (09:10→21:13)
[2016-12-06] MEDS: PATIENT'S OWN MEDICATION (NON-FORMULARY) (Omeprazole 40 MG) PO SCH (09:44)
[2016-12-06] MEDS: PATIENT'S OWN MEDICATION (NON-FORMULARY) (Omega-3 Fatty Acids [Omega-3] 1,000 MG) PO SCH ×2 (09:44→21:13)
[2016-12-06] MEDS: PRENATAL VITAMINS W/ FOLIC ACID TABLET (FP) PO SCH (10:03)
[2016-12-06] MEDS: LISINOPRIL 20 MG TABLET (FP) PO SCH ×2 (10:03→21:12)
[2016-12-06] MEDS: HYDROCHLOROTHIAZIDE 12.5 MG CAPSULE (FP) PO SCH (10:03)
[2016-12-06] MEDS: ARIPiprazole 10 MG TABLET PO SCH (10:03)
[2016-12-06] MEDS: busPIRone HCL 10 MG TABLET (FP) PO SCH ×2 (10:03→21:12)
[2016-12-06] MEDS: ASPIRIN COATED 81 MG TABLET.EC PO SCH (10:04)
[2016-12-06] MEDS: LIDOCAINE 5% TOPICAL PATCH TP SCH (10:04)
[2016-12-06] MEDS: METHYL SALICYLATE/MENTHOL OINT 30 GM TUBE TP SCH ×2 (10:04→21:12)
[2016-12-06] MEDS: NICOTINE 7 MG/24 HOURS TOPICAL PATCH TD SCH (10:04)
[2016-12-06] MEDS: FLUOCINONIDE 0.05% TOP OINT (60 GM TUBE) TP SCH ×2 (10:04→21:13)
[2016-12-06] MEDS: amLODIPine BESYLATE 10 MG TABLET (FP) PO SCH (10:04)
[2016-12-06] MEDS: CYCLOBENZAPRINE HCL 10 MG TABLET (FP) PO PRN (10:06)
[2016-12-06] MEDS: BUDESONIDE/FORMETEROL FUMARATE 160/4.5 mcg INHALER IH SCH ×2 (10:08→21:13)
[2016-12-06] MEDS: IBUPROFEN 400 MG TABLET (FP) PO PRN (15:41)
[2016-12-06] MEDS: MAGNESIUM HYDROX 2400MG/30ML ORAL SUSPENSION 30 ML CUP PO PRN (18:13)
[2016-12-06] MEDS: ATORVASTATIN CA 20 MG TABLET (FP) PO SCH (21:11)
[2016-12-06] MEDS: MONTELUKAST NA 10 MG TABLET PO SCH (21:11)
[2016-12-06] MEDS: traZODone HCL 100 MG TABLET (FP) PO SCH (21:12)
[2016-12-06] MEDS: PRAMIPEXOLE DIHYDROCHLORIDE PO SCH (21:13)
[2016-12-06] MEDS: THIAMINE HCL 100 MG TABLET (FP) PO SCH (21:14)
[2016-12-07] MEDS: diphenhydrAMINE HCL 50 MG CAPSULE PO SCH ×2 (00:30→06:10)
[2016-12-07] MEDS: IBUPROFEN 400 MG TABLET (FP) PO PRN ×2 (02:18→09:05)
[2016-12-07] MEDS: CYCLOBENZAPRINE HCL 10 MG TABLET (FP) PO PRN (02:20)
[2016-12-07] MEDS: QUEtiapine FUMARATE 25 MG TABLET (FP) PO SCH (06:09)
[2016-12-07] MEDS: metFORMIN HCL 500 MG TABLET (FP) PO SCH (06:09)
[2016-12-07] MEDS: INSULIN SLIDING SCALE (NOVOLOG) 1 VIAL SQ SCH (06:10)
[2016-12-07 06:41] VITALS: BP 159/90; PULSE 86; TEMP 97.8
--- NOTE | 2016-12-07 08:45 | PN ---
Psychiatric Progress Note Vital Signs: Vital Signs Period Temp Pulse Resp BP Sys/Galeas Pulse Ox Last 24 Hr 97.8 F 86-96 16-18 115-159/81-90 Date of Session: 12/07/16 Chief Complaint:: Discharge visit HPI: Patient addressed Alcohol and Cocaine dependence comorbid with Bipolar II disorder. ROS: BA,DM. Current Medications: Active Medications Generic Name Dose Route Start Last Admin Trade Name Freq PRN Reason Stop Dose Admin Acetaminophen 650 mg 11/22/16 14:22 11/25/16 17:22 Tylenol - PO 650 mg Q4H PRN Administration FEVER OR PAIN Al Hydroxide/Mg Hydroxide 30 ml 11/22/16 14:22 11/24/16 07:39 Mylanta Oral Suspension - PO 30 ml Q6H PRN Administration DYSPEPSIA Albuterol Sulfate 2 puff 11/22/16 14:25 12/01/16 19:44 Ventolin Hfa Inhaler - IH 2 puff Q4H PRN Administration ASTHMA Albuterol/Ipratropium 1 amp 11/22/16 14:35 Duoneb - NEB Q4H PRN SHORTNESS OF BREATH Albuterol/Ipratropium 1 amp 11/22/16 18:00 12/06/16 21:13 Duoneb - NEB Not Given QID MARCELINO Amlodipine Besylate 10 mg 11/23/16 10:00 12/06/16 10:04 Norvasc - PO 10 mg DAILY MARCELINO Administration Aripiprazole 10 mg 11/23/16 10:15 12/06/16 10:03 Abilify PO 10 mg DAILY MRACELINO Administration Aspirin 81 mg 11/23/16 13:30 12/06/16 10:04 Ecotrin - PO 81 mg DAILY MARCELINO Administration Atorvastatin Calcium 20 mg 11/22/16 22:00 12/06/16 21:11 Lipitor - PO 20 mg HS MARCELINO Administration Budesonide/Formoterol Fumarate 1 puff 11/22/16 22:00 12/06/16 21:13 Symbicort 160/4.5mcg - IH 1 puff BID MARCELINO Administration Buspirone HCl 10 mg 11/23/16 10:15 12/06/16 21:12 Buspar - PO 10 mg BID MARCELINO Administration Cyclobenzaprine HCl 10 mg 11/22/16 15:59 12/07/16 02:20 Flexeril - PO 10 mg TID PRN Administration MUSCLE SPASMS Diphenhydramine HCl 50 mg 11/22/16 18:30 12/07/16 06:10 Benadryl - PO 50 mg Q6HPO MARCELINO Administration Eucalyptus/Menthol/Phenol/Sorbitol 1 each 11/22/16 14:22 11/29/16 13:32 Cepastat Lozenge - MM 1 each Q4H PRN Administration SORE THROAT Fluocinonide 1 applic 11/22/16 22:00 12/06/16 21:13 Lidex 0.05% Ointment - TP Not Given BID [facility] Guaifenesin 10 ml 11/22/16 14:22 11/25/16 12:38 Robitussin Dm - PO 10 ml Q6H PRN Administration COUGH Hydrochlorothiazide 12.5 mg 11/23/16 10:00 12/06/16 10:03 Hctz - PO 12.5 mg DAILY MARCELINO Administration Hydroxyzine Pamoate 50 mg 11/26/16 14:43 11/26/16 15:40 Vistaril - PO 50 mg Q4H PRN Administration ANXIETY Ibuprofen 800 mg 11/22/16 16:00 12/07/16 02:18 Motrin - PO 800 mg Q6H PRN Administration PAIN Insulin Aspart 1 vial 11/23/16 07:00 12/07/16 06:10 Novolog Vial Sliding Scale - SQ [facility] Protocol Lidocaine 1 patch 11/26/16 14:30 12/06/16 10:04 Lidoderm Patch - TP 1 patch DAILY MARCELINO Administration Lisinopril 20 mg 11/22/16 22:00 12/06/16 21:12 Prinivil PO 20 mg BID [facility] Administration Loperamide HCl 4 mg 11/22/16 14:22 Imodium - PO Q6H PRN DIARRHEA Magnesium Hydroxide 30 ml 11/22/16 14:22 12/06/16 18:13 Milk Of Magnesia - PO 30 ml DAILY PRN Administration CONSTIPATION Metformin HCl 750 mg 11/23/16 21:28 12/07/16 06:09 Glucophage - PO 750 mg DAILY@0700 MARCELINO Administration Methyl Salicylate 1 applic 11/22/16 22:00 12/06/16 21:12 Rl-Anthony - TP Not Given BID [facility] Montelukast Sodium 10 mg 11/22/16 22:00 12/06/16 21:11 Singulair - PO 10 mg HS MARCELINO Administration Nicotine 7 mg 11/23/16 10:00 12/06/16 10:04 Nicoderm Patch - TD Not Given DAILY MARCELINO Nicotine Polacrilex 2 mg 11/22/16 14:22 Nicorette Gum - BUC Q2H PRN NICOTINE REPLACEMENT RX Non-Formulary Medication 40 mg 11/23/16 10:00 12/06/16 09:44 Omeprazole PO 40 mg DAILY MARCELINO Administration Non-Formulary Medication 0.5 mg 11/22/16 22:00 12/06/16 21:13 Pramipexole Dihydrochloride [Mirapex -] PO 0.5 mg HS MARCELINO Administration Non-Formulary Medication 1,000 mg 11/23/16 10:30 12/06/16 21:13 [place]-3 Fatty Acids [[place]-3] PO 1,000 mg BID MARCELINO Administration Multivit/Folic Acid/Iron 1 tab 11/23/16 10:00 12/06/16 10:03 Vitamins (Sjr) - PO Not Given DAILY MARCELINO Pseudoephedrine/Triprolidine 1 combo 11/22/16 14:22 Actifed - PO TID PRN NASAL CONGESTION Quetiapine Fumarate 25 mg 11/23/16 14:00 12/07/16 06:09 Seroquel - PO 25 mg TID MARCELINO Administration Thiamine HCl 100 mg 11/22/16 22:00 12/06/16 21:14 Vitamin B1 - PO 100 mg HS MARCELINO Administration Trazodone HCl 300 mg 11/22/16 22:00 12/06/16 21:12 Desyrel - PO 300 mg HS MARCELINO Administration Current Side Effect: No Lab tests ordered: No Lab tests reviewed: Yes Provider note:: The patient completed this program today.She has met her treatment goals and will continue to address her issues on outpatient basis at [facility] program in the [place].Patient continues to find that current medications:Seroquel 25 mg po tid,Abilify 10 mg po daily,Buspar 10 mg po bid and Trazodone 300 mg po hs help to reduce her anxiety,depression and modd instability along with insomnia.Scripts for 30 days supply provided. Patient identifies areas of difficulties and ways to utilize her coping skills, support to [facility] recovery. Patient is stable for discharge today. Total face to face time:: 30 Mental Status Exam - Mental Status Exam Alert and Oriented to: Time, Place, Person Cognitive Function: Grossly Intact Patient Appearance: Well Groomed Mood: Euthymic Affect: Mood Congruent Patient Behavior: Cooperative Speech Pattern: Clear Voice Loudness: Normal Thought Process: Goal Oriented Thought Disorder: Not Present Hallucinations: Denies Suicidal Ideation: Denies Homicidal Ideation: Denies Insight/Judgement: Fair Sleep: Fair Appetite: Good Muscle strength/Tone: Normal Gait/Station: Normal Psychiatric Treatment Plan - Problem List (1) Alcohol dependence Current Visit: Yes (2) Asthma Current Visit: Yes (3) Bipolar II disorder Current Visit: Yes Comment: By history. (4) Cannabis dependence Current Visit: Yes (5) Cocaine dependence, uncomplicated Current Visit: Yes (6) DM Diabetes mellitus type 2 Current Visit: Yes
[2016-12-07] MEDS: BUDESONIDE/FORMETEROL FUMARATE 160/4.5 mcg INHALER IH SCH (09:02)
[2016-12-07] MEDS: LIDOCAINE 5% TOPICAL PATCH TP SCH (09:02)
[2016-12-07] MEDS: PATIENT'S OWN MEDICATION (NON-FORMULARY) (Omeprazole 40 MG) PO SCH (09:02)
[2016-12-07] MEDS: PATIENT'S OWN MEDICATION (NON-FORMULARY) (Omega-3 Fatty Acids [Omega-3] 1,000 MG) PO SCH (09:02)
[2016-12-07] MEDS: PRENATAL VITAMINS W/ FOLIC ACID TABLET (FP) PO SCH (09:03)
[2016-12-07] MEDS: ALBUTEROL SO4 2.5/IPRATROPIUM 0.5 INH SOL 3 ML VIAL.NEB. NEB SCH (09:03)
[2016-12-07] MEDS: busPIRone HCL 10 MG TABLET (FP) PO SCH (09:03)
[2016-12-07] MEDS: METHYL SALICYLATE/MENTHOL OINT 30 GM TUBE TP SCH (09:03)
[2016-12-07] MEDS: FLUOCINONIDE 0.05% TOP OINT (60 GM TUBE) TP SCH (09:03)
[2016-12-07] MEDS: ARIPiprazole 10 MG TABLET PO SCH (09:03)
[2016-12-07] MEDS: ASPIRIN COATED 81 MG TABLET.EC PO SCH (09:03)
[2016-12-07] MEDS: amLODIPine BESYLATE 10 MG TABLET (FP) PO SCH (09:03)
[2016-12-07] MEDS: HYDROCHLOROTHIAZIDE 12.5 MG CAPSULE (FP) PO SCH (09:03)
[2016-12-07] MEDS: LISINOPRIL 20 MG TABLET (FP) PO SCH (09:03)
[2016-12-07] MEDS: NICOTINE 7 MG/24 HOURS TOPICAL PATCH TD SCH (09:07)
== END 2016-12-07 09:30 | disposition home or self-care (01) | DRG 772 ==
LOC: YASAS 13:20 → Y3W 13:21 → Y3E 13:29
PROVIDERS: ADMIT Psychiatry & Neurology Psychiatry; ATTEND Psychiatry & Neurology Psychiatry
PROC: HZ42ZZZ Group Counseling for Substance Abuse Treatment, Cognitive-Behavioral (ICD-10-PCS; principal; 2016-11-22)
DX: F10.20 Alcohol dependence, uncomplicated (principal); F14.20 Cocaine dependence, uncomplicated; F12.20 Cannabis dependence, uncomplicated; F31.81 Bipolar II disorder; J45.909 Unspecified asthma, uncomplicated; E11.9 Type 2 diabetes mellitus without complications; E66.9 Obesity, unspecified; Z68.35 Body mass index [BMI] 35.0-35.9, adult
CPT/HCPCS: 94640

== ENCOUNTER 2019-05-29 14:56 | Inpatient (IN) | payer OTHER ==
[2019-05-29 18:10] VITALS: BMI 35.1
--- NOTE | 2019-05-29 20:23 | HP ---
COWS - Scale Resting Pulse: 1= CO 81-100 Sweatin= Chills/Flushing Restless Observation: 5= Unable to Sit Still Pupil Size: 0= Normal to Room Light Bone or Joint Aches: 4=Acute Joint/Muscle Pain Runny Nose/ Eye Tearin= Nasal Congestion GI Upset > 30mins: 1= Stomach Cramp Tremor Observation: 1= Tremor [place], Not Seen Yawning Observation: 1= 1-2x During Session Anxiety or Irritability: 2=Irritable/Anxious Goose Flesh Skin: 0=Smooth Skin COWS Score: 17 CIWA Score Nausea/Vomitin-No Nausea/No Vomiting Muscle Tremors: 1-None Visible, but [place] Anxiety: 4-Mod. Anxious/Guarded Agitation: 4-Moderately Restless Paroxysmal Sweats: 3 Orientation: 0-Oriented Tacttile Disturbances: 0-None Auditory Disturbances: 0-None Visual Disturbances: 3-Moderate Sensitivity Headache: 0-None Present CIWA-Ar Total Score: 15 - Admission Criteria [facility]ASAS Guidelines: Admission for Medically Managed Detox: Requires at least one of the followin. CIWA greater than 12 2. Seizures within the past 24 hours 3. Delirium tremens within the past 24 hours 4. Hallucinations within the past 24 hours 5. Acute intervention needed for co occurring medical disorder 6. Acute intervention needed for co occurring psychiatric disorder 7. Severe withdrawal that cannot be handled at a lower level of care (continued vomiting, continued diarrhea, abnormal vital signs) requiring intravenous medication and/or fluids 8. Patient presents the following: CIWA greater than 12 Admission Criteria Met: Admission criteria met Admission ROS [facility] Chief Complaint: C/O WITHDRAWAL SX'S Allergies/Adverse Reactions: Allergies Allergy/AdvReac Type Severity Reaction Status Date / Time No Known Drug Allergies Allergy Unknown Verified 05/16/18 21:41 chlordiazepoxide Allergy Hives Verified 05/29/19 17:38 [From Librium] peaches Allergy Rash Uncoded 05/29/19 17:38 History of Present Illness: 63 Y.O. MALE WITH OPIOID AND ALCOHOL DEPENDENCE HERE FOR DETOX. PRESENTS WITH C/ O WITHDRAWAL SX'S. COWS 17/ CIWA 15. SHE IS SELF REFERRED. LAST HERE 1 YEAR AGO. DENIES ANY SUBSTANCE ABUSE TXMENT SINCE. REPORTS LONGEST CLEAN TIME 3 YEARS. MOST RECENT CLEAN TIME 5 MONTHS RELAPSING 7 MONTHS AGO. HEROIN AND ALCOHOL USE IS DAILY. + EYE [employer] WORK[employer]. DENIES BLACKOUTS, SZ D/O. DOMICILED, DISABLED, DENIES LEGALS. PMHX RLS, HTN, DM, PSYCH- ANXIETY, SLEEP APNEA WITH INTERMITTENT USE OF CPAP. Exam Limitations: Physical Impairment (AMBULATES WITH ROLLING WALKER DUE TO UNSTEADY GAIT) - Ebola screening Have you traveled outside of the country in the last 21 days: No (N) Have you had contact with anyone from an Ebola affected area: No Do you have a fever: No - Review of Systems Constitutional: Chills, Loss of Appetite, Night Sweats, Changes in sleep EENT: reports: Blurred Vision (GLASSES), Dental Problems (MISSING TEETH) Respiratory: reports: No Symptoms reported Cardiac: reports: No Symptoms Reported GI: reports: Diarrhea, Poor Fluid Intake, Abdominal cramping : reports: No Symptoms Reported Musculoskeletal: reports: Back Pain (CHRONIC), Joint Pain (CHRONNIC) Integumentary: reports: No Symptoms Reported Neuro: reports: Headache, Tingling (R HAND-CHRONIC), Tremors, Unsteady Gait Endocrine: reports: Other (HX/O DM) Hematology: reports: No Symptoms Reported Psychiatric: reports: Orientated x3, Agitated (IRRITABLE), Anxious Other Systems: Reviewed and Negative Patient History - Patient Medical History Hx Anemia: No Hx Asthma: Yes Hx Chronic Obstructive Pulmonary Disease (COPD): No Hx Cancer: No Hx Cardiac Disorders: No Hx Congestive Heart Failure: No Hx Hypertension: Yes Hx Hypercholesterolemia: Yes Hx Pacemaker: No HX Cerebrovascular Accident: No Hx Seizures: No Hx Dementia: No Hx Diabetes: Yes Hx Gastrointestinal Disorders: No Hx Liver Disease: No Hx Genitourinary Disorders: No Hx Sexually Transmitted Disorders: No Hx Renal Disease (ESRD): No Hx Thyroid Disease: No Hx Human Immunodeficiency Virus (HIV): No Hx Hepatitis C: No Hx Depression: Yes Hx Suicide Attempt: No Hx Bipolar Disorder: Yes (depression, gives hx of mood changes) Hx Schizophrenia: No - Patient Surgical History Past Surgical History: Yes Hx Neurologic Surgery: No Hx Cataract Extraction: No Hx Cardiac Surgery: No Hx Lung Surgery: No Hx Breast Surgery: No Hx Breast Biopsy: No Hx Abdominal Surgery: No Hx Appendectomy: No Hx Cholecystectomy: No Hx Genitourinary Surgery: No Hx Section: No Hx Orthopedic Surgery: Yes (Right knee replacement 08/2017) Hx Hysterectomy: Yes (2008) Other Surgical History: Hysterectomy 2005 Anesthesia Reaction: No - PPD History Previous Implant?: Yes Documented Results: Positive w/o proof Implanted On Prior [facility] Admission?: No Results: CXR 05/17/18 PPD to be Administered?: No - Reproductive History Last Menstrual Period: 06/29/05 LMP comment: MENAPAUSE Patient : No (NE[facility]) - Smoking Cessation Smoking history: Current every day smoker Have you smoked in the past 12 months: Yes Aproximately how many cigarettes per day: 6 Cigars Per Day: 0 Hx Chewing Tobacco Use: No Initiated information on smoking cessation: Yes 'Breaking Loose' booklet given: 05/29/19 - Substance & Tx. History Hx Alcohol Use: Yes Hx Substance Use: Yes Substance Use Type: Alcohol, Heroin, Marijuana Hx Substance Use Treatment: Yes ([facility]) - Substances abused Alcohol Substance route: Oral Frequency: Daily Amount used: 1/2 pint of vodka and 4 12 0z beers Age of first use: 15 Date of last use: 05/29/19 Heroin Substance route: Inhalation Frequency: Daily Amount used: $50-70$/day Age of first use: 34 Date of last use: 05/28/19 Family Disease History - Family Disease History Family Disease History: Heart Disease: Sister (breast), CA: Mother (pelvic), Sister, Respiratory: Mother, Sister, Other: Brother ( heroin overdose) Admission Physical Exam [facility] - Vital Signs Vital Signs: Vital Signs - 24 hr 05/29/19 18:05 Temperature 98.4 F Pulse Rate 97 H Respiratory 18 Rate Blood Pressure 129/81 - Physical General Appearance: Yes: Obese, Tremorous, Irritable, Anxious HEENTM: Yes: EOMI, Normocephalic, Normal Voice, TONI, Pharynx Normal, Other ( EDENTULOUS) Respiratory: Yes: Chest Non-Tender, Lungs Clear, Normal Breath Sounds, No Respiratory Distress, No Accessory Muscle Use Neck: Yes: No masses,lesions,Nodules, Supple, Trachea in good position Breast: Yes: Breast Exam Deferred Cardiology: Yes: Regular Rhythm, Regular Rate, S1, S2 Abdominal: Yes: Non Tender, Soft, Increased Bowel Sounds, Protuberent Genitourinary: Yes: Within Normal Limits Back: Yes: Normal Inspection Musculoskeletal: Yes: Other (UNSTEADY GAIT WITH ROLLING WALKER) Extremities: Yes: Normal Range of Motion, Non-Tender, Tremors Neurological: Yes: Fully Oriented, Alert, Motor Strength 5/5 Integumentary: Yes: Dry, Warm Lymphatic: Yes: Within Normal Limits - Diagnostic (1) Opioid dependence with withdrawal Current Visit: Yes Status: Acute (2) History of positive PPD Current Visit: Yes Status: Chronic (3) Sleep apnea in adult Current Visit: Yes Status: Chronic Comment: INTERMITTENT USE OF CPAP. CLIENT STATES SHE DOES NOT NEED IT (4) HTN (hypertension) Current Visit: Yes Status: Chronic Qualifiers: Hypertension type: essential hypertension Qualified Code(s): I10 - Essential (primary) hypertension (5) HLD (hyperlipidemia) Current Visit: Yes Status: Chronic (6) Alcohol dependence with uncomplicated withdrawal Current Visit: Yes Status: Acute (7) Bipolar II disorder Current Visit: Yes Status: Chronic (8) Asthma Current Visit: Yes Status: Chronic (9) At risk for falls Current Visit: Yes Status: Chronic Comment: AMBUALTES WITH ROLLING WALKER (10) Cannabis dependence Current Visit: Yes Status: Chronic (11) DM Diabetes mellitus type 2 Current Visit: Yes Status: Chronic (12) Drug-induced mood disorder Current Visit: Yes Status: Suspected (13) Essential hypertension Current Visit: Yes Status: Chronic (14) Nicotine dependence Current Visit: Yes Status: Chronic (15) Restless leg syndrome Current Visit: Yes Status: Chronic (16) Assistance needed for ambulation and movement Current Visit: Yes Status: Chronic Comment: AMBUALTES WITH ROLLING WALKER Cleared for Admission [facility] - Detox or Rehab [facility] Level of Care: Medically Managed Detox Regimen/Protocol: Methadone (AND ATIVAN TAPER) Claeared for Rehab Admission: No Breathalyzer - Breathalyzer Breathalyzer: 0 Urine Drug Screen - Test Device Lot number: [id number] Expiration date: 03/17/21 - Control Is test valid?: Yes - Results Drug screen NEGATIVE: No Urine drug screen results: THC-Marijuana, FEN-Fentanyl, MOP-Opiates Inpatient Rehab Admission - Rehab Decision to Admit Inpatient rehab admission?: No
[2019-05-29] MEDS ORDERED: ACETAMINOPHEN 325 MG TABLET (FP) PO PRN ×2 (20:40)
[2019-05-29] MEDS ORDERED: guaiFENesin 200 MG/10 ML 10 ML UNIT-DOSE CUPS PO PRN (20:40)
[2019-05-29] MEDS ORDERED: METHADONE HCL 10 MG TABLET (FOR DETOX USE ONLY) PO ONE (20:40)
[2019-05-29] MEDS ORDERED: METHOCARBAMOL 500 MG TABLET PO PRN (20:40)
[2019-05-29] MEDS ORDERED: ONDANSETRON *ODT* 4 MG TABLET SL PRN (20:40)
[2019-05-29] MEDS ORDERED: MENTHOL/PHENOL 1 EACH UD MM PRN (20:40)
[2019-05-29] MEDS ORDERED: LORazepam 1 MG TABLET PO PRN (20:40)
[2019-05-29] MEDS ORDERED: NALOXONE HCL 0.4 MG/ML VIAL IM PRN (20:40)
[2019-05-29] MEDS ORDERED: BISMUTH SUBSALICYLATE 524 MG/30 ML UD PO PRN (20:40)
[2019-05-29] MEDS ORDERED: MAGNESIUM CITRATE 300 ML BOTTLE PO PRN (20:40)
[2019-05-29] MEDS ORDERED: hydrOXYzine PAMOATE 25 MG CAPSULE (FP) PO PRN (20:40)
[2019-05-29] MEDS ORDERED: DICYCLOMINE HCL 10 MG CAPSULE PO PRN (20:40)
[2019-05-29] MEDS ORDERED: P-EPHED 60MG/TRIPROLIDI 2.5MG TABLET PO PRN (20:40)
[2019-05-29] MEDS ORDERED: MAG HYDROX/AL HYDROX/SIMETH 30 ML UNIT-DOSE CUP PO PRN (20:40)
[2019-05-29] MEDS ORDERED: MAGNESIUM HYDROX 2400MG/30ML ORAL SUSPENSION 30 ML CUP PO PRN (20:40)
[2019-05-29] MEDS: ATORVASTATIN CA 20 MG TABLET (FP) PO SCH (22:42)
[2019-05-29] MEDS: INSULIN SLIDING SCALE (NOVOLOG) 1 VIAL SQ SCH (22:43)
[2019-05-29] MEDS: LORazepam 2 MG TABLET PO SCH (22:43)
[2019-05-29] MEDS: cloNIDine HCL 0.1 MG TABLET PO PRN (22:43)
[2019-05-29] MEDS: THIAMINE HCL 100 MG TABLET (FP) PO SCH (22:43)
[2019-05-30] MEDS: LORazepam 2 MG TABLET PO SCH ×4 (05:25→23:27)
[2019-05-30] MEDS ORDERED: ALBUTEROL SO4 0.083% IH SOL 2.5 MG/3 ML VIAL.NEB. NEB ONE (05:38)
[2019-05-30] MEDS: IBUPROFEN 400 MG TABLET (FP) PO PRN (05:58)
[2019-05-30] MEDS: metFORMIN HCL 500 MG TABLET (FP) PO SCH ×2 (06:55→17:34)
[2019-05-30] MEDS ORDERED: METHADONE HCL 5 MG TABLET (FOR DETOX USE ONLY) ONE (09:18)
[2019-05-30] MEDS ORDERED: METHADONE HCL 10 MG TABLET (FOR DETOX USE ONLY) ONE (09:19)
--- NOTE | 2019-05-30 09:31 | EKG ---
Test Reason : Blood Pressure : / mmHG Vent. Rate : 076 BPM Atrial Rate : 076 BPM P-R Int : 138 ms QRS Dur : 092 ms QT Int : 400 ms P-R-T Axes : 001 038 040 degrees QTc Int : 450 ms NORMAL SINUS RHYTHM NORMAL ECG WHEN COMPARED WITH ECG OF 16-MAY-2018 23:24, NO SIGNIFICANT CHANGE WAS FOUND Confirmed by ELMIRA MOISE MD ([id number]) on 05/30/2019 9:31:22 AM Referred By: Confirmed By:ELMIRA MOISE MD
--- NOTE | 2019-05-30 09:54 | CONSULT ---
[facility] Psychiatric Consult - Data Date of interview: 05/30/19 Admission source: [facility] Identifying data: Patient is a 63 year old female, mother of six, unemployed, homeless, domiciled, and is supported by [facility]. This is one of multiple admissions for patient. Patient admitted to for alcohol and opiate dependence. Substance Abuse History: Smoking Cessation. Smoking history: Current every day smoker. Have you smoked in the past 12 months: Yes. Aproximately how many cigarettes per day: 6. Cigars Per Day: 0. Hx Chewing Tobacco Use: No. Initiated information on smoking cessation: Yes. 'Breaking Loose' booklet given : 05/29/19. - Substance & Tx. History. Hx Alcohol Use: Yes. Hx Substance Use : Yes. Substance Use Type: Alcohol, Heroin, Marijuana. Hx Substance Use Treatment: Yes ([facility]). - Substances abused. Alcohol. Substance route: Oral. Frequency: Daily. Amount used: 1/2 pint of vodka and 4 12 0z beers. Age of first use: 15. Date of last use: 05/29/19. Heroin. Substance route : Inhalation. Frequency: Daily. Amount used: $50-70$/day. Age of first use: 34. Date of last use: 05/28/19 Medical History: Asthma, hypertension, Hypercholesterolemia, diabetes Psychiatric History: Patient denies h/o psychiatric hospitalizations, and suicide attempt. Ms. Ayoub is currently receiving outpatient psychiatric care at [facility] in the [place] (receiving treatment for two years at this current location) but has not seen her psychiatrist in two months and reports medication noncompliance. Ms. Ayoub reports being prescribed trazodone 300mg HS +medications for depression (unable to remember as she reports not taking them). As per previous notes patient has been prescribed elavil + Zoloft + gabapentin + zoloft. At present patient reports stable mood but is experencing difficulty sleeping. Physical/Sexual Abuse/Trauma History: denies. Mental Status Exam - Mental Status Exam Alert and Oriented to: Time, Place, Person Cognitive Function: Good Patient Appearance: Well Groomed Mood: Euthymic Affect: Appropriate Patient Behavior: Appropriate, Cooperative Speech Pattern: Appropriate Voice Loudness: Normal Thought Process: Goal Oriented Thought Disorder: Not Present Hallucinations: Denies Suicidal Ideation: Denies Homicidal Ideation: Denies Insight/Judgement: Poor Sleep: Poorly Appetite: Fair Muscle strength/Tone: Normal Gait/Station: Other (Patient ambulates with a rolling walker.) Psychiatric Findings - Problem List ([place] 1, 2,3) (1) Substance-induced sleep disorder Current Visit: Yes Status: Acute (2) Alcohol dependence with uncomplicated withdrawal Current Visit: Yes Status: Acute (3) Opioid dependence with withdrawal Current Visit: Yes Status: Acute (4) Bipolar II disorder Current Visit: Yes Status: Chronic (5) Cannabis dependence Current Visit: Yes Status: Chronic - Initial Treatment Plan Initial Treatment Plan: Psychoeducation provided. Detoxification in progress. Will order Trazodone 100mg HS. Benefits and side effects discussed. Verbal consent given.
[2019-05-30] MEDS ORDERED: METHADONE (DETOX) 20 MG, METHADONE (DETOX) 5 MG PO ONE (10:00)
[2019-05-30] MEDS ORDERED: LIDOCAINE 5% TOPICAL PATCH TP SCH (10:00)
[2019-05-30] MEDS: amLODIPine BESYLATE 10 MG TABLET (FP) PO SCH (10:10)
[2019-05-30] MEDS: CLOPIDOGREL BISULFATE 75 MG TABLET (FP) PO SCH (10:10)
[2019-05-30] MEDS: LISINOPRIL 20 MG TABLET (FP) PO SCH (10:10)
[2019-05-30] MEDS: PRENATAL VITAMINS W/ FOLIC ACID TABLET (FP) PO SCH (10:10)
[2019-05-30] MEDS: LIDOCAINE 5% TOPICAL PATCH TP SCH (10:11)
[2019-05-30] MEDS: NICOTINE 14 MG/24 HOURS TOPICAL PATCH TD SCH (10:11)
[2019-05-30 10:35] LABS: ALBUMIN 3.3 g/dl (3.4-5.0); BILIRUBIN,TOTAL 0.4 mg/dL (0.2-1); CALCIUM 9.2 mg/dL (8.5-10.1); CREATININE 0.8 mg/dL (0.55-1.3); POTASSIUM 3.6 mmol/L (3.5-5.1); TOT PROT 6.5 g/dl (6.4-8.2)
[2019-05-30 10:45] LABS: HEMATOCRIT 40.7 % (32.4-45.2); MCH 31.5 pg (25.7-33.7); MCHC 34.3 g/dl (32.0-36.0); MEAN CELL VOLUME 91.7 fl (80-96); MEAN PLT VOLUME 7.7 fl (7.5-11.1); RBC 4.44 M/mm3 (3.60-5.2); RDW 16.7 % (11.6-15.6); WHITE BLOOD COUNT 7.3 K/mm3 (4.0-10.0)
[2019-05-30 11:01] LABS: PLATELET COUNT 222 K/MM3 (134-434)
[2019-05-30] MEDS: INSULIN SLIDING SCALE (NOVOLOG) 1 VIAL SQ SCH ×3 (12:10→23:28)
[2019-05-30] MEDS: cloNIDine HCL 0.1 MG TABLET PO PRN (12:11)
[2019-05-30 12:42] LABS: URINE APPEARANCE TURBID; URINE BILIRUBIN NEGATIVE (NEGATIVE); URINE COLOR YELLOW; URINE GLUCOSE (UA) NEGATIVE (NEGATIVE); URINE KETONE NEGATIVE (NEGATIVE); URINE LEUK ESTERASE NEGATIVE (NEGATIVE); URINE NITRITE NEGATIVE (NEGATIVE); URINE PROTEIN NEGATIVE (NEGATIVE); URINE UROBILINOGEN 0.2 mg/dL (0.2-1.0)
--- NOTE | 2019-05-30 12:46 | PN ---
[facility] CIWA - CIWA Score Nausea/Vomitin-No Nausea/No Vomiting Muscle Tremors: 2 Anxiety: 3 Agitation: 2 Paroxysmal Sweats: 3 Orientation: 0-Oriented Tacttile Disturbances: 0-None Auditory Disturbances: 0-None Visual Disturbances: 0-None Headache: 2-Mild CIWA-Ar Total Score: 12 S COWS - Scale Resting Pulse: 0= [place] 80 or Below Sweatin= Chills/Flushing Restless Observation: 1= Difficult to Sit Still Pupil Size: 0= Normal to Room Light Bone or Joint Aches: 4=Acute Joint/Muscle Pain Runny Nose/ Eye Tearin= None GI Upset > 30mins: 0= None Tremor Observation of Outstretched Hands: 2= Slight Tremor Visible Yawning Observation: 0= None Anxiety or Irritability: 2=Irritable/Anxious Goose Flesh Skin: 0=Smooth Skin COWS Score: 10 [facility] Progress Note (SOAP) Subjective: c/o sweats, headache, anxiety, irritability, and shakes. Objective: 05/30/19 12:46 Vital Signs - 24 hr 05/29/19 05/29/19 05/30/19 18:05 22:01 03:30 Temperature 98.4 F 98.2 F Pulse Rate 97 H 76 Respiratory 18 18 18 Rate Blood Pressure 129/81 131/77 05/30/19 05/30/19 06:00 09:25 Temperature 97.7 F 98.1 F Pulse Rate 73 74 Respiratory 18 18 Rate Blood Pressure 111/70 144/91 Assessment: 05/30/19 12:46 AOX3, in no acute respiratory distress Full ROM, ambulating in the unit. Withdrawal symptoms. Plan: continue detox.
[2019-05-30] MEDS: PRAMIPEXOLE DIHYDROCHLORIDE 0.5 MG TABLET PO SCH (16:23)
[2019-05-30] MEDS: THIAMINE HCL 100 MG TABLET (FP) PO SCH (21:50)
[2019-05-30] MEDS: ATORVASTATIN CA 20 MG TABLET (FP) PO SCH (21:50)
[2019-05-30] MEDS: traZODone HCL 50 MG TABLET (FP) PO SCH (21:51)
[2019-05-30] MEDS: ALBUTEROL SO4 2.5/IPRATROPIUM 0.5 INH SOL 3 ML VIAL.NEB. NEB PRN (22:10)
[2019-05-30] MEDS: LIDOCAINE PATCH REMOVAL MC SCH (23:28)
[2019-05-31] MEDS: LORazepam 1 MG TABLET PO SCH ×4 (05:31→22:03)
[2019-05-31] MEDS: ALBUTEROL SO4 8 GM HFA INHALER IH PRN ×2 (05:34→16:37)
[2019-05-31] MEDS: metFORMIN HCL 500 MG TABLET (FP) PO SCH ×2 (07:27→17:16)
[2019-05-31] MEDS: INSULIN SLIDING SCALE (NOVOLOG) 1 VIAL SQ SCH ×4 (07:28→23:48)
[2019-05-31] MEDS ORDERED: METHADONE HCL 10 MG TABLET (FOR DETOX USE ONLY) PO ONE (10:00)
[2019-05-31] MEDS: CLOPIDOGREL BISULFATE 75 MG TABLET (FP) PO SCH (10:26)
[2019-05-31] MEDS: amLODIPine BESYLATE 10 MG TABLET (FP) PO SCH (10:26)
[2019-05-31] MEDS: NICOTINE 14 MG/24 HOURS TOPICAL PATCH TD SCH (10:27)
[2019-05-31] MEDS: LISINOPRIL 20 MG TABLET (FP) PO SCH (10:27)
[2019-05-31] MEDS: PRENATAL VITAMINS W/ FOLIC ACID TABLET (FP) PO SCH (10:27)
[2019-05-31] MEDS: LIDOCAINE 5% TOPICAL PATCH TP SCH (10:27)
[2019-05-31] MEDS: PRAMIPEXOLE DIHYDROCHLORIDE 0.5 MG TABLET PO SCH (10:27)
[2019-05-31] MEDS: NICOTINE POLACRILEX 2 MG GUM BUC PRN (10:28)
[2019-05-31] MEDS: IBUPROFEN 400 MG TABLET (FP) PO PRN ×2 (11:52→18:47)
--- NOTE | 2019-05-31 17:30 | PN ---
[facility] CIWA - CIWA Score Nausea/Vomitin-Mild Nausea/No Vomiting Muscle Tremors: 2 Anxiety: 2 Agitation: 2 Paroxysmal Sweats: 2 Orientation: 0-Oriented Tacttile Disturbances: 0-None Auditory Disturbances: 0-None Visual Disturbances: 0-None Headache: 1-Very Mild CIWA-Ar Total Score: 10 [facility] COWS - Scale Resting Pulse: 1= [place] 81-100 Sweatin= Chills/Flushing Restless Observation: 1= Difficult to Sit Still Pupil Size: 0= Normal to Room Light Bone or Joint Aches: 1= Mild Discomfort Runny Nose/ Eye Tearin= Runny Nose/Eyes GI Upset > 30mins: 1= Stomach Cramp Tremor Observation of Outstretched Hands: 2= Slight Tremor Visible Yawning Observation: 1= 1-2x During Session Anxiety or Irritability: 1=Feels Anxious/Irritable Goose Flesh Skin: 0=Smooth Skin COWS Score: 11 S Progress Note (SOAP) Subjective: Tremor, chills, yawning a lot, back pain, interrupted sleep Objective: 05/31/19 17:27 Last Vital Signs Temp Pulse Resp BP Pulse Ox 98.2 F 92 H 18 132/85 05/31/19 17:12 05/31/19 17:12 05/31/19 17:12 05/31/19 17:12 Laboratory Tests 05/29/19 05/30/19 05/30/19 20:34 07:50 07:50 WBC 7.3 RBC 4.44 Hgb 14.0 Hct 40.7 MCV 91.7 MCH 31.5 MCHC 34.3 RDW 16.7 H Plt Count 222 MPV 7.7 Sodium 140 Potassium 3.6 Chloride 107 Carbon Dioxide 28 Anion Gap 5 L BUN 12.0 Creatinine 0.8 Est GFR (CKD-EPI)AfAm 92.22 Est GFR (CKD-EPI)NonAf 79.57 Random Glucose 144 H Calcium 9.2 Total Bilirubin 0.4 AST 25 ALT 41 Alkaline Phosphatase 89 Total Protein 6.5 Albumin 3.3 L Urine Color Urine Appearance Urine pH Ur Specific [place] Urine Protein Urine Glucose (UA) Urine Ketones Urine Blood Urine Nitrite Urine Bilirubin Urine Urobilinogen Ur Leukocyte Esterase POC Urine HCG, Qual Negative RPR Titer 05/30/19 05/30/19 07:50 09:10 WBC RBC Hgb Hct MCV MCH MCHC RDW Plt Count MPV Sodium Potassium Chloride Carbon Dioxide Anion Gap BUN Creatinine Est GFR (CKD-EPI)AfAm Est GFR (CKD-EPI)NonAf Random Glucose Calcium Total Bilirubin AST ALT Alkaline Phosphatase Total Protein Albumin Urine Color Yellow Urine Appearance Turbid Urine pH 5.0 Ur Specific [place] 1.022 Urine Protein Negative Urine Glucose (UA) Negative Urine Ketones Negative Urine Blood Negative Urine Nitrite Negative Urine Bilirubin Negative Urine Urobilinogen 0.2 Ur Leukocyte Esterase Negative POC Urine HCG, Qual RPR Titer Nonreactive Labs reviewed: glucose 144 Assessment: 05/31/19 17:28 Withdrawal symptoms Hyperglycemia noted Plan: Continue detox Encouraged PO water hydration Hyperglycemia secondary to DMT2: continue diabetic regimen, monitor finger sticks, follow up with PCP for management
[2019-05-31] MEDS: ATORVASTATIN CA 20 MG TABLET (FP) PO SCH (22:03)
[2019-05-31] MEDS: THIAMINE HCL 100 MG TABLET (FP) PO SCH (22:03)
[2019-05-31] MEDS: traZODone HCL 50 MG TABLET (FP) PO SCH (22:03)
[2019-05-31] MEDS: LIDOCAINE PATCH REMOVAL MC SCH (23:48)
[2019-06-01] MEDS ORDERED: LORazepam 0.5 MG TABLET PO PRN
[2019-06-01] MEDS: LORazepam 0.5 MG TABLET PO SCH ×4 (05:31→22:03)
[2019-06-01] MEDS: metFORMIN HCL 500 MG TABLET (FP) PO SCH ×2 (06:44→17:15)
[2019-06-01] MEDS: INSULIN SLIDING SCALE (NOVOLOG) 1 VIAL SQ SCH ×4 (06:44→22:48)
[2019-06-01] MEDS: ALBUTEROL SO4 8 GM HFA INHALER IH PRN ×2 (06:48→08:57)
[2019-06-01] MEDS ORDERED: METHADONE HCL 10 MG TABLET (FOR DETOX USE ONLY) ONE (09:22)
[2019-06-01] MEDS ORDERED: METHADONE HCL 5 MG TABLET (FOR DETOX USE ONLY) ONE (09:22)
[2019-06-01] MEDS ORDERED: METHADONE (DETOX) 10 MG, METHADONE (DETOX) 5 MG PO ONE (10:00)
[2019-06-01] MEDS: LISINOPRIL 20 MG TABLET (FP) PO SCH (10:36)
[2019-06-01] MEDS: CLOPIDOGREL BISULFATE 75 MG TABLET (FP) PO SCH (10:36)
[2019-06-01] MEDS: PRAMIPEXOLE DIHYDROCHLORIDE 0.5 MG TABLET PO SCH (10:36)
[2019-06-01] MEDS: PRENATAL VITAMINS W/ FOLIC ACID TABLET (FP) PO SCH (10:36)
[2019-06-01] MEDS: NICOTINE 14 MG/24 HOURS TOPICAL PATCH TD SCH (10:37)
[2019-06-01] MEDS: amLODIPine BESYLATE 10 MG TABLET (FP) PO SCH (10:37)
[2019-06-01] MEDS: LIDOCAINE 5% TOPICAL PATCH TP SCH (10:37)
[2019-06-01] MEDS: NICOTINE POLACRILEX 2 MG GUM BUC PRN ×2 (10:38→14:50)
--- NOTE | 2019-06-01 12:35 | PN ---
[facility] CIWA - CIWA Score Nausea/Vomitin-No Nausea/No Vomiting Muscle Tremors: 3 Anxiety: 1-Mildly Anxious Agitation: 2 Paroxysmal Sweats: 1-Minimal Palms Moist Orientation: 0-Oriented Tacttile Disturbances: 0-None Auditory Disturbances: 0-None Visual Disturbances: 0-None Headache: 0-None Present CIWA-Ar Total Score: 7 [facility]HS COWS - Scale Resting Pulse: 2= [place] 101-120 Sweatin= Chills/Flushing Restless Observation: 1= Difficult to Sit Still Pupil Size: 0= Normal to Room Light Bone or Joint Aches: 1= Mild Discomfort Runny Nose/ Eye Tearin= Nasal Congestion GI Upset > 30mins: 0= None Tremor Observation of Outstretched Hands: 1= Tremor [place], Not Seen Yawning Observation: 1= 1-2x During Session Anxiety or Irritability: 1=Feels Anxious/Irritable Goose Flesh Skin: 0=Smooth Skin COWS Score: 9 [facility] Progress Note (SOAP) Subjective: anxiety body aches sweats tired i need to see psych again Objective: 06/01/19 12:34 Vital Signs Temperature 97.7 F 06/01/19 09:23 Pulse Rate 108 H 06/01/19 09:23 Respiratory Rate 18 06/01/19 09:23 Blood Pressure 140/88 06/01/19 09:23 O2 Sat by Pulse Oximetry (%) Assessment: 06/01/19 12:35 withdrawal sx Plan: continue detox increase fluids psych ordered
[2019-06-01] MEDS: ALBUTEROL SO4 2.5/IPRATROPIUM 0.5 INH SOL 3 ML VIAL.NEB. NEB PRN (16:04)
[2019-06-01] MEDS: MELATONIN 5 MG TABLETS PO PRN ×2 (21:59→22:03)
[2019-06-01] MEDS: THIAMINE HCL 100 MG TABLET (FP) PO SCH (21:59)
[2019-06-01] MEDS: ATORVASTATIN CA 20 MG TABLET (FP) PO SCH (22:03)
[2019-06-01] MEDS: traZODone HCL 50 MG TABLET (FP) PO SCH (22:03)
[2019-06-01] MEDS: LIDOCAINE PATCH REMOVAL MC SCH (22:47)
[2019-06-02] MEDS ORDERED: LORazepam 0.5 MG TABLET PO ONE (05:00)
[2019-06-02] MEDS: INSULIN SLIDING SCALE (NOVOLOG) 1 VIAL SQ SCH ×4 (06:20→22:28)
[2019-06-02] MEDS: metFORMIN HCL 500 MG TABLET (FP) PO SCH ×2 (06:20→17:06)
[2019-06-02] MEDS ORDERED: METHADONE HCL 10 MG TABLET (FOR DETOX USE ONLY) PO ONE (10:00)
[2019-06-02] MEDS: amLODIPine BESYLATE 10 MG TABLET (FP) PO SCH (10:30)
[2019-06-02] MEDS: LISINOPRIL 20 MG TABLET (FP) PO SCH (10:30)
[2019-06-02] MEDS: PRAMIPEXOLE DIHYDROCHLORIDE 0.5 MG TABLET PO SCH (10:30)
[2019-06-02] MEDS: LIDOCAINE 5% TOPICAL PATCH TP SCH (10:30)
[2019-06-02] MEDS: CLOPIDOGREL BISULFATE 75 MG TABLET (FP) PO SCH (10:30)
[2019-06-02] MEDS: NICOTINE POLACRILEX 2 MG GUM BUC PRN (10:31)
[2019-06-02] MEDS: PRENATAL VITAMINS W/ FOLIC ACID TABLET (FP) PO SCH (10:31)
[2019-06-02] MEDS: NICOTINE 14 MG/24 HOURS TOPICAL PATCH TD SCH (10:31)
[2019-06-02] MEDS: ALBUTEROL SO4 8 GM HFA INHALER IH PRN (10:32)
[2019-06-02] MEDS: ALBUTEROL SO4 2.5/IPRATROPIUM 0.5 INH SOL 3 ML VIAL.NEB. NEB PRN (10:55)
--- NOTE | 2019-06-02 13:52 | PN ---
[facility] CIWA - CIWA Score Nausea/Vomitin-No Nausea/No Vomiting Muscle Tremors: 2 Anxiety: 1-Mildly Anxious Agitation: 1-Slight > Activity Paroxysmal Sweats: No Perspiration Orientation: 0-Oriented Tacttile Disturbances: 0-None Auditory Disturbances: 0-None Visual Disturbances: 0-None Headache: 0-None Present CIWA-Ar Total Score: 4 S COWS - Scale Resting Pulse: 2= [place] 101-120 Sweatin= Chills/Flushing Restless Observation: 0= Sits Still Pupil Size: 0= Normal to Room Light Bone or Joint Aches: 1= Mild Discomfort Runny Nose/ Eye Tearin= None GI Upset > 30mins: 0= None Tremor Observation of Outstretched Hands: 0= None Yawning Observation: 0= None Anxiety or Irritability: 1=Feels Anxious/Irritable Goose Flesh Skin: 0=Smooth Skin COWS Score: 5 [facility] Progress Note (SOAP) Subjective: anxiety body aches Objective: 06/02/19 13:52 Vital Signs Temperature 99.9 F H 06/02/19 09:50 Pulse Rate 110 H 06/02/19 09:50 Respiratory Rate 18 06/02/19 09:50 Blood Pressure 117/68 06/02/19 09:50 O2 Sat by Pulse Oximetry (%) aaox3 ambulating no acute distress Assessment: 06/02/19 13:52 mild withdrawal sx Plan: continue detox increase fluids d/c in am
[2019-06-02] MEDS: IBUPROFEN 400 MG TABLET (FP) PO PRN (14:04)
[2019-06-02 21:16] VITALS: PULSE 83
[2019-06-02] MEDS: LIDOCAINE PATCH REMOVAL MC SCH (22:27)
[2019-06-02] MEDS: ATORVASTATIN CA 20 MG TABLET (FP) PO SCH (22:27)
[2019-06-02] MEDS: THIAMINE HCL 100 MG TABLET (FP) PO SCH (22:27)
[2019-06-02] MEDS: traZODone HCL 50 MG TABLET (FP) PO SCH (22:27)
[2019-06-03] MEDS ORDERED: METHADONE HCL 5 MG TABLET (FOR DETOX USE ONLY) PO ONE (06:00)
[2019-06-03] MEDS: metFORMIN HCL 500 MG TABLET (FP) PO SCH (06:57)
[2019-06-03] MEDS: INSULIN SLIDING SCALE (NOVOLOG) 1 VIAL SQ SCH ×2 (06:58→11:01)
[2019-06-03 07:45] VITALS: BP 102/51; TEMP 98.4
[2019-06-03] MEDS: PRAMIPEXOLE DIHYDROCHLORIDE 0.5 MG TABLET PO SCH (10:57)
[2019-06-03] MEDS: LIDOCAINE 5% TOPICAL PATCH TP SCH (10:57)
[2019-06-03] MEDS: NICOTINE 14 MG/24 HOURS TOPICAL PATCH TD SCH (10:58)
[2019-06-03] MEDS: CLOPIDOGREL BISULFATE 75 MG TABLET (FP) PO SCH (10:58)
[2019-06-03] MEDS: PRENATAL VITAMINS W/ FOLIC ACID TABLET (FP) PO SCH (10:58)
[2019-06-03] MEDS: amLODIPine BESYLATE 10 MG TABLET (FP) PO SCH (10:58)
[2019-06-03] MEDS: LISINOPRIL 20 MG TABLET (FP) PO SCH (10:58)
--- NOTE | 2019-06-04 09:34 | DS ---
[facility] Detox Discharge Summary Admission Date: 05/29/19 Discharge Date: 06/03/19 - History Present History: Alcohol Dependence, Opioid Dependence Additional Comments: Patient medically stable follow up with rehab and primary care provider. Pertinent Past History: Patient medically stable. Laboratory Last Values WBC 7.3 K/mm3 (4.0-10.0) 05/30/19 07:50 RBC 4.44 M/mm3 (3.60-5.2) 05/30/19 07:50 Hgb 14.0 GM/dL (10.7-15.3) 05/30/19 07:50 Hct 40.7 % (32.4-45.2) 05/30/19 07:50 MCV 91.7 fl (80-96) 05/30/19 07:50 MCH 31.5 pg (25.7-33.7) 05/30/19 07:50 MCHC 34.3 g/dl (32.0-36.0) 05/30/19 07:50 RDW 16.7 % (11.6-15.6) H 05/30/19 07:50 Plt Count 222 K/MM3 (134-434) 05/30/19 07:50 MPV 7.7 fl (7.5-11.1) 05/30/19 07:50 Sodium 140 mmol/L (136-145) 05/30/19 07:50 Potassium 3.6 mmol/L (3.5-5.1) 05/30/19 07:50 Chloride 107 mmol/L (98-107) 05/30/19 07:50 Carbon Dioxide 28 mmol/L (21-32) 05/30/19 07:50 Anion Gap 5 MMOL/L (8-16) L 05/30/19 07:50 BUN 12.0 mg/dL (7-18) 05/30/19 07:50 Creatinine 0.8 mg/dL (0.55-1.3) 05/30/19 07:50 Est GFR (CKD-EPI)AfAm 92.22 05/30/19 07:50 Est GFR (CKD-EPI)NonAf 79.57 05/30/19 07:50 POC Glucometer 103 UNITS (80-120) 06/03/19 06:18 Random Glucose 144 mg/dL (74-106) H 05/30/19 07:50 Calcium 9.2 mg/dL (8.5-10.1) 05/30/19 07:50 Total Bilirubin 0.4 mg/dL (0.2-1) 05/30/19 07:50 AST 25 U/L (15-37) 05/30/19 07:50 ALT 41 U/L (13-61) 05/30/19 07:50 Alkaline Phosphatase 89 U/L (45-117) 05/30/19 07:50 Total Protein 6.5 g/dl (6.4-8.2) 05/30/19 07:50 Albumin 3.3 g/dl (3.4-5.0) L 05/30/19 07:50 Urine Color Yellow 05/30/19 09:10 Urine Appearance Turbid 05/30/19 09:10 Urine pH 5.0 (5.0-8.0) 05/30/19 09:10 Ur Specific [place] 1.022 (1.010-1.035) 05/30/19 09:10 Urine Protein Negative (NEGATIVE) 05/30/19 09:10 Urine Glucose (UA) Negative (NEGATIVE) 05/30/19 09:10 Urine Ketones Negative (NEGATIVE) 05/30/19 09:10 Urine Blood Negative (NEGATIVE) 05/30/19 09:10 Urine Nitrite Negative (NEGATIVE) 05/30/19 09:10 Urine Bilirubin Negative (NEGATIVE) 05/30/19 09:10 Urine Urobilinogen 0.2 mg/dL (0.2-1.0) 05/30/19 09:10 Ur Leukocyte Esterase Negative (NEGATIVE) 05/30/19 09:10 POC Urine HCG, Qual Negative 05/29/19 20:34 RPR Titer Nonreactive (NONREACTIVE) 05/30/19 07:50 - Physical Exam Results Vital Signs: Vital Signs Temperature 98.4 F 06/03/19 07:44 Pulse Rate 83 06/03/19 07:44 Respiratory Rate 18 06/03/19 07:44 Blood Pressure 102/51 L 06/03/19 07:44 O2 Sat by Pulse Oximetry (%) - Treatment Hospital Course: Detox Protocol Followed, Detoxed Safely, Responded well, Discharged Condition Good, Rehab Referral Accepted Patient has Accepted a Rehab Referral to: [facility] - Medication Discharge Medications: Ambulatory Orders Gabapentin 800 mg PO BID 05/22/18 Lidocaine 5% Patch [Lidoderm Patch -] 1 patch TP DAILY 05/22/18 Albuterol Sulfate Inhaler - [Ventolin HFA Inhaler -] 1 puff IH QID PRN #1 inhaler 06/09/18 Amitriptyline HCl [Elavil -] 150 mg PO HS #90 tablet 06/09/18 Aspirin [ASA -] 81 mg PO DAILY #30 tab.chew 06/09/18 Buspirone HCl [Buspar -] 15 mg PO TID #90 tablet 06/09/18 Lisinopril 20 mg PO DAILY #30 tablet 06/09/18 Pramipexole Di-HCl [Mirapex] 0.5 mg PO DAILY #30 tablet 06/09/18 Sertraline HCl [Zoloft] 100 mg PO DAILY #30 tablet 06/09/18 Amlodipine Besylate [Norvasc -] 10 mg PO DAILY 05/29/19 Atorvastatin Calcium 20 mg PO HS 05/29/19 Clopidogrel Bisulfate [Clopidogrel] 75 mg PO DAILY 05/29/19 Dulaglutide [Trulicity] 1.5 mg SCJ WEEKLY 05/29/19 Fluticasone/Vilanterol [Breo Ellipta 100-25 Mcg INH] 100 mcg IH DAILY 05/29/19 Omeprazole 40 mg PO DAILY 05/29/19 Sitagliptin Phosphate [Januvia] 100 mg PO DAILY 05/29/19 metFORMIN HCL [Glucophage -] 1,000 mg PO BIDAC 05/29/19 traZODone HCL [Desyrel -] 300 mg PO HS 05/29/19 traZODone HCL [Trazodone HCl] 100 mg PO 06/03/19 - Diagnosis (1) Alcohol dependence with uncomplicated withdrawal Status: Acute (2) Opioid dependence with withdrawal Status: Acute (3) Asthma Status: Chronic (4) DM Diabetes mellitus type 2 Status: Chronic (5) Essential hypertension Status: Chronic (6) Gastroesophageal reflux disease Status: Chronic (7) HLD (hyperlipidemia) Status: Chronic (8) HTN (hypertension) Status: Chronic Qualifiers: Hypertension type: essential hypertension Qualified Code(s): I10 - Essential (primary) hypertension - AMA Did Patient Leave Against Medical Advice: No
== END 2019-06-03 12:23 | disposition other institution (70) | DRG 773 ==
LOC: YASAS 14:56 → Y6N 21:15
PROVIDERS: ADMIT Surgery; ATTEND Surgery
PROC: HZ2ZZZZ Detoxification Services for Substance Abuse Treatment (ICD-10-PCS; principal; 2019-05-29)
DX: F11.23 Opioid dependence with withdrawal (principal); F10.230 Alcohol dependence with withdrawal, uncomplicated; F12.20 Cannabis dependence, uncomplicated; F17.210 Nicotine dependence, cigarettes, uncomplicated; F31.81 Bipolar II disorder; F19.24 Other psychoactive substance dependence with psychoactive substance-induced mood disorder; I10 Essential (primary) hypertension; E11.65 Type 2 diabetes mellitus with hyperglycemia; J45.909 Unspecified asthma, uncomplicated; E78.5 Hyperlipidemia, unspecified; G47.30 Sleep apnea, unspecified; G25.81 Restless legs syndrome; R26.2 Difficulty in walking, not elsewhere classified; R29.6 Repeated falls; Z99.89 Dependence on other enabling machines and devices; Z79.84 Long term (current) use of oral hypoglycemic drugs
CPT/HCPCS: 36415; 71046-TC-FY; 80053; 81003; 81025; 82962; 85027; 86593; 93005; 93010; 94640; J0735

== ENCOUNTER 2019-06-03 12:32 | Inpatient (IN) | payer OTHER | END 2019-06-16 14:05 | disposition home or self-care (01) | LOC: YASAS 12:32 → Y3E 12:33 ==

== ENCOUNTER 2023-02-25 14:29 | Inpatient (IN) | payer OTHER ==
[2023-02-25 15:03] VITALS: BMI 32.7
[2023-02-25] MEDS ORDERED: guaiFENesin 600 MG TABLET.ER (FP) PO PRN (15:44)
[2023-02-25] MEDS ORDERED: BENZOCAINE/MENTHOL (CHLORASEPTIC ) LOZENGE MM PRN (15:44)
[2023-02-25] MEDS ORDERED: ONDANSETRON *ODT* 4 MG TABLET SL PRN (15:44)
[2023-02-25] MEDS ORDERED: NALOXONE HCL 0.4 MG/ML VIAL IM PRN (15:44)
[2023-02-25] MEDS ORDERED: MAG HYDROX/AL HYDROX/SIMETH 30 ML UNIT-DOSE CUP PO PRN (15:44)
[2023-02-25] MEDS ORDERED: AMMONIUM LACTATE 12% LOTION 225 GM BOTTLE TP PRN (15:44)
[2023-02-25] MEDS ORDERED: LOPERAMIDE HCL 2 MG CAPSULE PO PRN (15:44)
[2023-02-25] MEDS ORDERED: IBUPROFEN 600 MG TABLET (FP) PO PRN (15:44)
[2023-02-25] MEDS ORDERED: BENZONATATE 200 MG CAPSULE PO PRN (15:44)
[2023-02-25] MEDS ORDERED: COLLOIDAL OATMEAL 1 BAR EACH TP PRN (15:44)
[2023-02-25] MEDS ORDERED: BISMUTH SUBSALICYLATE 524 MG/30 ML PO PRN (15:44)
[2023-02-25] MEDS ORDERED: POLYETHYLENE GLYCOL (HEALTHYLAX) 3350 17 GM PACKET PO PRN (15:44)
[2023-02-25] MEDS ORDERED: MAGNESIUM HYDROX 2400MG/30ML ORAL SUSPENSION 30 ML CUP PO PRN (15:44)
[2023-02-25] MEDS ORDERED: NALOXONE HCL (KLOXXADO) 8 MG SPRAY NS PRN (15:44)
[2023-02-25] MEDS ORDERED: methaDONE HCL 10 MG TABLET (FOR DETOX USE ONLY) PO ONE ×2 (16:30→18:15)
[2023-02-25] MEDS: MELATONIN 5 MG TABLETS PO SCH (22:07)
[2023-02-25] MEDS: THIAMINE HCL 100 MG TABLET (FP) PO SCH (22:07)
[2023-02-25] MEDS: LIDOCAINE PATCH REMOVAL MC SCH (22:07)
[2023-02-26] MEDS: ACETAMINOPHEN 325 MG TABLET (FP) PO PRN ×3 (07:15→22:13)
[2023-02-26] MEDS: METHOCARBAMOL 500 MG TABLET PO PRN ×3 (08:46→22:13)
[2023-02-26] MEDS ORDERED: PATIENT'S OWN MEDICATION (NON-FORMULARY) (Omeprazole/Sodium Bicarbonate [Omeprazole-Bicarb PO SCH (10:00)
[2023-02-26] MEDS ORDERED: OMEPRAZOLE 40 MG PO SCH (10:00)
[2023-02-26] MEDS: ASPIRIN 81 MG CHEWABLE TABLETS PO SCH (10:18)
[2023-02-26] MEDS: ROFLUMILAST 500 MCG PO SCH (10:21)
[2023-02-26] MEDS: PRENATAL VITAMINS W/ FOLIC ACID TABLET (FP) PO SCH (10:22)
[2023-02-26] MEDS: LIDOCAINE 5% TOPICAL PATCH TP SCH (10:24)
[2023-02-26] MEDS: CLOPIDOGREL BISULFATE 75 MG TABLET (FP) PO SCH (10:25)
[2023-02-26] MEDS: NON-FORMULARY MED PO SCH (11:02)
[2023-02-26] MEDS: ALBUTEROL SO4 HFA INHALER IH PRN (11:14)
[2023-02-26] MEDS: hydrOXYzine PAMOATE 25 MG CAPSULE (FP) PO PRN ×2 (11:19→17:47)
[2023-02-26 12:31] LABS: BLOOD UREA NITROGEN 22.1 mg/dL (7-18)
[2023-02-26 12:32] LABS: ALBUMIN 3.6 g/dl (3.4-5.0)
[2023-02-26 12:36] LABS: BILIRUBIN,TOTAL 0.5 mg/dL (0.2-1); TOT PROT 7.7 g/dl (6.4-8.2)
[2023-02-26 12:39] LABS: HEMATOCRIT 42.5 % (32.4-45.2); HEMOGLOBIN 14.6 GM/dL (10.7-15.3); MCH 29.9 pg (25.7-33.7); MCHC 34.4 g/dl (32.0-36.0); MEAN CELL VOLUME 87.1 fl (80-96); PLATELET COUNT 316 10^3/uL (134-434); RBC 4.88 M/mm3 (3.60-5.2); RDW 14.9 % (11.6-15.6); WHITE BLOOD COUNT 11.1 K/mm3 (4.0-10.0)
[2023-02-26] MEDS: PRAMIPEXOLE DIHYDROCHLORIDE 0.25 MG TABLET PO SCH ×2 (15:42→22:10)
[2023-02-26] MEDS: MONTELUKAST NA 10 MG TABLET PO SCH (22:10)
[2023-02-26] MEDS: ATORVASTATIN CA 20 MG TABLET (FP) PO SCH (22:11)
[2023-02-26] MEDS: THIAMINE HCL 100 MG TABLET (FP) PO SCH (22:11)
[2023-02-26] MEDS: MELATONIN 5 MG TABLETS PO SCH (22:11)
[2023-02-26] MEDS: traZODone HCL 100 MG TABLET (FP) PO SCH (22:11)
[2023-02-26] MEDS: LIDOCAINE PATCH REMOVAL MC SCH (22:16)
[2023-02-27] MEDS: hydrOXYzine PAMOATE 25 MG CAPSULE (FP) PO PRN ×2 (05:34→05:42)
[2023-02-27] MEDS: ACETAMINOPHEN 325 MG TABLET (FP) PO PRN (05:35)
[2023-02-27] MEDS: PRENATAL VITAMINS W/ FOLIC ACID TABLET (FP) PO SCH (09:53)
[2023-02-27] MEDS: ASPIRIN 81 MG CHEWABLE TABLETS PO SCH (09:55)
[2023-02-27] MEDS: amLODIPine BESYLATE 10 MG TABLET (FP) PO SCH (09:55)
[2023-02-27] MEDS: SERTRALINE HCL 50 MG TABLET (FP) PO SCH (09:55)
[2023-02-27] MEDS: CLOPIDOGREL BISULFATE 75 MG TABLET (FP) PO SCH (09:55)
[2023-02-27] MEDS: NON-FORMULARY MED PO SCH (09:56)
[2023-02-27] MEDS: LIDOCAINE 5% TOPICAL PATCH TP SCH (09:56)
[2023-02-27] MEDS: ROFLUMILAST 500 MCG PO SCH (09:56)
[2023-02-27] MEDS: PRAMIPEXOLE DIHYDROCHLORIDE 0.25 MG TABLET PO SCH ×2 (09:58→22:12)
[2023-02-27] MEDS ORDERED: methaDONE HCL 10 MG TABLET (FOR DETOX USE ONLY) PO ONE (10:00)
[2023-02-27] MEDS: ALBUTEROL SO4 HFA INHALER IH PRN (10:00)
[2023-02-27] MEDS ORDERED: TRIMETHOBENZAMIDE HCL 200MG/2ML INJ IM PRN (10:53)
[2023-02-27 12:22] LABS: HEMATOCRIT 43.8 % (32.4-45.2); HEMOGLOBIN 14.8 GM/dL (10.7-15.3); MCH 29.4 pg (25.7-33.7); MCHC 33.7 g/dl (32.0-36.0); MEAN CELL VOLUME 87.1 fl (80-96); MEAN PLT VOLUME 7.4 fl (7.5-11.1); PLATELET COUNT 329 10^3/uL (134-434); RBC 5.02 M/mm3 (3.60-5.2); RDW 15.3 % (11.6-15.6); WHITE BLOOD COUNT 9.2 K/mm3 (4.0-10.0)
[2023-02-27] MEDS: BACLOFEN 10 MG TABLET (FP) PO PRN (12:57)
[2023-02-27] MEDS: diazePAM 5 MG TABLET PO PRN (12:57)
[2023-02-27] MEDS ORDERED: ONDANSETRON *ODT* 4 MG TABLET SL ONE (13:21)
[2023-02-27] MEDS: MONTELUKAST NA 10 MG TABLET PO SCH (22:12)
[2023-02-27] MEDS: ATORVASTATIN CA 20 MG TABLET (FP) PO SCH (22:12)
[2023-02-27] MEDS: MELATONIN 5 MG TABLETS PO SCH (22:12)
[2023-02-27] MEDS: THIAMINE HCL 100 MG TABLET (FP) PO SCH (22:12)
[2023-02-27] MEDS: traZODone HCL 100 MG TABLET (FP) PO SCH (22:12)
[2023-02-27] MEDS: LIDOCAINE PATCH REMOVAL MC SCH (22:13)
[2023-02-27] MEDS: METHOCARBAMOL 500 MG TABLET PO PRN (22:14)
[2023-02-27] MEDS: levoFLOXacin 750 MG TABLET PO SCH (22:36)
[2023-02-28] MEDS: ACETAMINOPHEN 325 MG TABLET (FP) PO PRN ×3 (03:53→21:30)
[2023-02-28] MEDS: diazePAM 5 MG TABLET PO PRN ×2 (08:13→17:30)
[2023-02-28] MEDS: SERTRALINE HCL 50 MG TABLET (FP) PO SCH (10:04)
[2023-02-28] MEDS: PRAMIPEXOLE DIHYDROCHLORIDE 0.25 MG TABLET PO SCH ×2 (10:04→22:37)
[2023-02-28] MEDS: METHOCARBAMOL 500 MG TABLET PO PRN (10:04)
[2023-02-28] MEDS: NON-FORMULARY MED PO SCH (10:05)
[2023-02-28] MEDS: amLODIPine BESYLATE 10 MG TABLET (FP) PO SCH (10:05)
[2023-02-28] MEDS: CLOPIDOGREL BISULFATE 75 MG TABLET (FP) PO SCH (10:05)
[2023-02-28] MEDS: ASPIRIN 81 MG CHEWABLE TABLETS PO SCH (10:05)
[2023-02-28] MEDS: PRENATAL VITAMINS W/ FOLIC ACID TABLET (FP) PO SCH (10:05)
[2023-02-28] MEDS: ROFLUMILAST 500 MCG PO SCH (10:05)
[2023-02-28] MEDS: LIDOCAINE 5% TOPICAL PATCH TP SCH (10:06)
[2023-02-28] MEDS: levoFLOXacin 750 MG TABLET PO SCH (11:09)
[2023-02-28] MEDS: ATORVASTATIN CA 20 MG TABLET (FP) PO SCH (21:32)
[2023-02-28] MEDS: BACLOFEN 10 MG TABLET (FP) PO PRN (21:32)
[2023-02-28] MEDS: THIAMINE HCL 100 MG TABLET (FP) PO SCH (21:32)
[2023-02-28] MEDS: traZODone HCL 100 MG TABLET (FP) PO SCH (21:32)
[2023-02-28] MEDS: MELATONIN 5 MG TABLETS PO SCH (21:33)
[2023-02-28] MEDS: MONTELUKAST NA 10 MG TABLET PO SCH (21:34)
[2023-02-28] MEDS: LIDOCAINE PATCH REMOVAL MC SCH (21:34)
[2023-03-01] MEDS: ALBUTEROL SO4 HFA INHALER IH PRN ×2 (09:13→21:43)
[2023-03-01] MEDS: amLODIPine BESYLATE 10 MG TABLET (FP) PO SCH (09:14)
[2023-03-01] MEDS: CLOPIDOGREL BISULFATE 75 MG TABLET (FP) PO SCH (09:14)
[2023-03-01] MEDS: LIDOCAINE 5% TOPICAL PATCH TP SCH (09:14)
[2023-03-01] MEDS: ASPIRIN 81 MG CHEWABLE TABLETS PO SCH (09:14)
[2023-03-01] MEDS: SERTRALINE HCL 50 MG TABLET (FP) PO SCH (09:14)
[2023-03-01] MEDS: ROFLUMILAST 500 MCG PO SCH (09:15)
[2023-03-01] MEDS: NON-FORMULARY MED PO SCH (09:15)
[2023-03-01] MEDS: PRENATAL VITAMINS W/ FOLIC ACID TABLET (FP) PO SCH (09:16)
[2023-03-01] MEDS ORDERED: methaDONE HCL 10 MG TABLET (FOR DETOX USE ONLY) PO ONE (10:00)
[2023-03-01] MEDS: diazePAM 5 MG TABLET PO PRN ×2 (12:46→21:45)
[2023-03-01] MEDS: METHOCARBAMOL 500 MG TABLET PO PRN (12:46)
[2023-03-01 13:12] VITALS: RESP 18
[2023-03-01] MEDS ORDERED: PRAMIPEXOLE DIHYDROCHLORIDE 1.5 MG TABLET PO SCH (15:42)
[2023-03-01] MEDS: PRAMIPEXOLE DIHYDROCHLORIDE 0.25 MG TABLET PO SCH (15:57)
[2023-03-01] MEDS: ACETAMINOPHEN 325 MG TABLET (FP) PO PRN (21:13)
[2023-03-01] MEDS: BACLOFEN 10 MG TABLET (FP) PO PRN (21:43)
[2023-03-01] MEDS: MONTELUKAST NA 10 MG TABLET PO SCH (21:45)
[2023-03-01] MEDS: ATORVASTATIN CA 20 MG TABLET (FP) PO SCH (21:45)
[2023-03-01] MEDS: THIAMINE HCL 100 MG TABLET (FP) PO SCH (21:45)
[2023-03-01] MEDS: traZODone HCL 100 MG TABLET (FP) PO SCH (21:45)
[2023-03-01] MEDS: MELATONIN 5 MG TABLETS PO SCH (21:46)
[2023-03-01] MEDS: LIDOCAINE PATCH REMOVAL MC SCH (21:47)
[2023-03-02 08:57] VITALS: BP 118/67; PULSE 74; TEMP 96.9
[2023-03-02] MEDS: SERTRALINE HCL 50 MG TABLET (FP) PO SCH (09:03)
[2023-03-02] MEDS: CLOPIDOGREL BISULFATE 75 MG TABLET (FP) PO SCH (09:03)
[2023-03-02] MEDS: amLODIPine BESYLATE 10 MG TABLET (FP) PO SCH (09:03)
[2023-03-02] MEDS: ASPIRIN 81 MG CHEWABLE TABLETS PO SCH (09:03)
[2023-03-02] MEDS: PRENATAL VITAMINS W/ FOLIC ACID TABLET (FP) PO SCH (09:03)
[2023-03-02] MEDS: LIDOCAINE 5% TOPICAL PATCH TP SCH (09:03)
[2023-03-02] MEDS: NON-FORMULARY MED PO SCH (09:04)
[2023-03-02] MEDS: ROFLUMILAST 500 MCG PO SCH (09:04)
== END 2023-03-02 09:12 | disposition home or self-care (01) | DRG 897 ==
LOC: YASAS 14:29 → Y3N 18:02
PROVIDERS: ADMIT Allergy & Immunology; ATTEND Surgery
PROC: HZ2ZZZZ Detoxification Services for Substance Abuse Treatment (ICD-10-PCS; principal; 2023-02-25)
DX: F11.23 Opioid dependence with withdrawal (principal); N39.0 Urinary tract infection, site not specified; F17.210 Nicotine dependence, cigarettes, uncomplicated; E78.1 Pure hyperglyceridemia; J44.9 Chronic obstructive pulmonary disease, unspecified; K21.9 Gastro-esophageal reflux disease without esophagitis; E11.9 Type 2 diabetes mellitus without complications; Z79.84 Long term (current) use of oral hypoglycemic drugs; J32.9 Chronic sinusitis, unspecified; E66.9 Obesity, unspecified; Z68.32 Body mass index [BMI] 32.0-32.9, adult; Z96.651 Presence of right artificial knee joint; Z99.81 Dependence on supplemental oxygen; Z91.81 History of falling; Z99.89 Dependence on other enabling machines and devices
CPT/HCPCS: 36415; 80053; 80061; 82962; 85027; 86780; 93005; 93010; C9803-CS; J0475; Q0162; U0003; U0005

== ENCOUNTER 2023-02-27 14:47 | Emergency (ER) | payer OTHER ==
[2023-02-27 15:19] VITALS: RESP 18; BMI 33.5
[2023-02-27] MEDS ORDERED: cloNIDine HCL 0.1 MG TABLET PO ONE (16:43)
[2023-02-27] MEDS ORDERED: DICYCLOMINE HCL 20 MG TABLET PO ONE (16:43)
[2023-02-27] MEDS ORDERED: LACTATED RINGERS SOLUTION 1000 ML INFUS.BAG IV ONE (16:43)
[2023-02-27 16:47] LABS: BASO % 0.2 % (0-2.0); EOS % 0.3 % (0-4.5); HEMATOCRIT 45.4 % (32.4-45.2); HEMOGLOBIN 15.1 GM/dL (10.7-15.3); LYMPH % 11.6 % (8-40); MCH 28.7 pg (25.7-33.7); MCHC 33.2 g/dl (32.0-36.0); MEAN CELL VOLUME 86.5 fl (80-96); MEAN PLT VOLUME 7.2 fl (7.5-11.1); MONO % 2.7 % (3.8-10.2); NEUT % 85.2 % (42.8-82.8); PLATELET COUNT 345 10^3/uL (134-434); RBC 5.25 M/mm3 (3.60-5.2); RDW 15.2 % (11.6-15.6); WHITE BLOOD COUNT 11.9 K/mm3 (4.0-10.0)
[2023-02-27] MEDS ORDERED: ACETAMINOPHEN 1000 MG/100 ML BAG IVPB ONE (16:54)
[2023-02-27 16:58] LABS: INR 1.39 (0.83-1.09); PROTHROMBIN TIME (PATIENT) 16.1 SEC (9.7-13.0)
[2023-02-27 17:01] LABS: ACTIVATED PTT 33.8 SECONDS (25.2-36.5)
[2023-02-27] MEDS ORDERED: ACETAMINOPHEN INJECTION 100 ML IVPB ONE (17:04)
[2023-02-27] MEDS ORDERED: DICYCLOMINE HCL 10 MG CAPSULE ONE (17:04)
[2023-02-27] MEDS ORDERED: cloNIDine HCL 0.1 MG TABLET ONE (17:04)
[2023-02-27 17:10] LABS: CHLORIDE 104 mmol/L (98-107); SODIUM 134 mmol/L (136-145)
[2023-02-27 17:13] LABS: ALBUMIN 3.8 g/dl (3.4-5.0); BLOOD UREA NITROGEN 12.6 mg/dL (7-18); CALCIUM 10.2 mg/dL (8.5-10.1); CO2 24 mmol/L (21-32); GLUCOSE,RANDOM 133 mg/dL (74-106); LIPASE 32 U/L (73-393)
[2023-02-27 17:16] LABS: CREATININE 0.9 mg/dL (0.55-1.3); SGOT/AST 70 U/L (15-37)
[2023-02-27 17:18] LABS: BILIRUBIN,TOTAL 0.6 mg/dL (0.2-1); TOT PROT 8.3 g/dl (6.4-8.2)
[2023-02-27 17:19] LABS: ALK PHOS 100 U/L (45-117)
[2023-02-27 17:20] LABS: ANION GAP 6 MMOL/L (8-16); SGPT/ALT 34 U/L (13-61)
[2023-02-27 17:32] VITALS: TEMP 99.1
[2023-02-27 18:21] LABS: CALCIUM 10.8 mg/dL (8.5-10.1)
[2023-02-27 18:22] LABS: BLOOD UREA NITROGEN 12.4 mg/dL (7-18)
[2023-02-27 18:25] LABS: CREATININE 0.8 mg/dL (0.55-1.3)
[2023-02-27 18:54] LABS: EPI CELLS >36 /uL (0-25.1); HYALINE CASTS 1 /uL (0-3.1); PH,URINE 6.5 (5.0-8.0); URINE APPEARANCE CLEAR; URINE BACTERIA 182 /uL (0-1359); URINE BILIRUBIN NEGATIVE (NEGATIVE); URINE COLOR DK YELLOW; URINE GLUCOSE (UA) NEGATIVE (NEGATIVE); URINE KETONE 1+ (NEGATIVE); URINE LEUK ESTERASE 1+ (NEGATIVE); URINE NITRITE NEGATIVE (NEGATIVE); URINE PROTEIN 1+ (NEGATIVE); URINE RBC 20 /uL (0-23.9); URINE WBC 19 /uL (0-25.8)
[2023-02-27 19:05] VITALS: BP 124/75; PULSE 76
== END 2023-02-27 19:48 | disposition home or self-care (01) ==
LOC: JER 14:47
PROC: 3E033NZ Introduction of Analgesics, Hypnotics, Sedatives into Peripheral Vein, Percutaneous Approach (ICD-10-PCS; principal; 2023-02-27)
DX: N39.0 Urinary tract infection, site not specified (principal); R11.10 Vomiting, unspecified; J01.90 Acute sinusitis, unspecified; F11.23 Opioid dependence with withdrawal
CPT/HCPCS: 36415; 70450-TC; 70486-TC; 71045-TC-FY; 72100-TC-FY; 72125-TC; 80048; 80053; 81003; 83690; 84484; 85025; 85610; 85730; 87086; 93005; 93010; 96374; 99285-25